=== PATIENT | male | born 1955 | race Caucasian/White ===

== ENCOUNTER → 2018-08-01 | Outpatient (CLI) | payer BC ==
[2018-08-01 10:17] LABS: Blood Urea Nitrogen 22 mg/dL (9-20)
--- NOTE | 2018-08-01 15:54 | MR ---
EXAMINATION TYPE: MR lumbar spine wo/w con DATE OF EXAM: 08/01/2018 COMPARISON: None HISTORY: LBP, weakness, BLE radic x 8 weeks, prior surgery 2014 TECHNIQUE: Multiplanar, multisequence images of the lumbar spine were acquired utilizing 10 mL intravenous Gadav ist gadolinium contrast. Fairly normal alignment. There is a few millimeter anterior subluxation of L4 in relation L5. There i s posterior rods and screws fusing L4 and L5 vertebra. There is some metal artifact. There is disc pr osthesis at L4-5. There is hypertrophic facet arthropathy and relative spinal stenosis at L3-4. The l umbar nerve roots appear normal. There is no lumbar paraspinal mass. There is no compression fracture . Contrast images show no pathologic enhancement. There is no evidence of focal bone destruction. The re is anterior disc bulging at L2-3. IMPRESSION: Postsurgical changes. Degenerative minimal L4-5 spondylolisthesis. There is mild spinal stenosis at L 3-4 due to facet arthropathy.
== END | disposition home or self-care (01) ==
LOC: RADMRIMAIN 09:41
PROVIDERS: ATTEND Psychiatry & Neurology Neurology
DX: M48.061 Spinal stenosis, lumbar region without neurogenic claudication (principal); M43.16 Spondylolisthesis, lumbar region; M46.96 Unspecified inflammatory spondylopathy, lumbar region; Z98.1 Arthrodesis status
CPT/HCPCS: 82565; 84520; 72158; A9585

== ENCOUNTER 2021-03-03 10:07 | Inpatient (IN) | payer BC ==
[2021-03-03] MEDS ORDERED: NICOTINE 21MG/24HR PATCH TRANSDERM STA (10:44)
[2021-03-03] MEDS ORDERED: MULTIVITAMINS, THERA 1 EACH TAB PO STA (10:45)
[2021-03-03] MEDS ORDERED: FOLIC ACID 1 MG TAB PO STA (10:46)
[2021-03-03] MEDS ORDERED: THIAMINE 100 MG TAB PO STA (10:46)
[2021-03-03] MEDS ORDERED: SODIUM CHLORIDE 0.9% 1,000 ML IV STA ×2 (10:47)
[2021-03-03] MEDS ORDERED: LORazepam 2 MG/ML INJ IV STA (10:48)
[2021-03-03] MEDS ORDERED: cloNIDine HCL 0.1 MG TAB PO STA (10:48)
--- NOTE | 2021-03-03 10:54 | ED ---
Alcohol HPI - General Chief Complaint: Alcohol Stated Complaint: withdrawl Time Seen by Provider: 03/03/21 10:07 Source: patient, EMS, RN notes reviewed Mode of arrival: EMS Limitations: no limitations - History of Present Illness Initial Comments: This is a 65-year-old male with a history of hypertension also a history of alcohol use who presents by EMS today with complaints of alcohol withdrawal. Even drinking as much is a fifth of alcohol per day for last couple years. He does have no history of pancreatitis or liver issues or gastritis he is aware of present in the stop drinking he quit 2 days ago he started having sweats and some shakes he knows his blood pressure is been elevated he has had decreased oral intake over last week or so with minimal food or fluid over last day or 2. No overt palpitations he is somewhat lightheaded. Some nausea at this time no diarrhea no overt abdominal pain he has had a cough he is a smoker no phlegm production. No other current complaints or modifying factors other than he is showing depressed and does also request a evaluation for this. MD Complaint: alcohol withdrawal, alcohol dependence, desires rehab - Related Data Home Medications Medication Instructions Recorded Confirmed Aspirin 325 mg PO DAILY 04/29/14 04/29/14 Losartan [Cozaar] 50 mg PO DAILY 04/29/14 04/29/14 Naproxen [Naprosyn] 250 mg PO Q6HR PRN 04/29/14 04/29/14 Omeprazole 40 mg PO DAILY 04/29/14 04/29/14 Previous Rx's Medication Instructions Recorded Atorvastatin [Lipitor] 20 mg PO DAILY #90 tab 04/30/14 Allergies Allergy/AdvReac Type Severity Reaction Status Date / Time sulfamethoxazole Allergy Rash/Hives Verified 03/03/21 10:15 [From Bactrim] trimethoprim [From Bactrim] Allergy Rash/Hives Verified 03/03/21 10:15 Review of Systems ROS Statement: Those systems with pertinent positive or pertinent negative responses have been documented in the HPI. ROS Other: All systems not noted in ROS Statement are negative. Past Medical History Past Medical History: Chest Pain / Angina, GERD/Reflux, Hypertension, Osteoarthritis (OA) History of Any Multi-Drug Resistant Organisms: None Reported Past Surgical History: Back Surgery Additional Past Surgical History / Comment(s): tooth abscess, cataract surg Past Anesthesia/Blood Transfusion Reactions: No Reported Reaction Past Psychological History: Depression Smoking Status: Current every day smoker Past Alcohol Use History: Abuse, Daily, Heavy Past Drug Use History: None Reported General Exam - General Exam Comments Initial Comments: Is a well-developed well-nourished awake alert oriented times 3 male he does appear tired Limitations: no limitations General appearance: alert, anxious Head exam: Present: atraumatic, normocephalic, normal inspection Eye exam: Present: normal appearance, PERRL, EOMI. Absent: scleral icterus, conjunctival injection, periorbital swelling ENT exam: Present: mucous membranes dry Neck exam: Present: normal inspection, full ROM, other (No stridor JVD or bruits). Absent: tenderness, meningismus, lymphadenopathy Respiratory exam: Present: normal lung sounds bilaterally. Absent: respiratory distress, wheezes, rales, rhonchi, stridor Cardiovascular Exam: Present: regular rate, normal rhythm, normal heart sounds. Absent: systolic murmur, diastolic murmur, rubs, gallop, clicks GI/Abdominal exam: Present: soft, normal bowel sounds. Absent: distended, tenderness, guarding, rebound, rigid, bruit, pulsatile mass Extremities exam: Present: normal inspection, full ROM, normal capillary refill. Absent: tenderness, pedal edema, joint swelling, calf tenderness Back exam: Present: normal inspection Neurological exam: Present: alert, oriented X3, CN II-XII intact Psychiatric exam: Present: normal affect, normal mood Skin exam: Present: warm, dry, intact, normal color. Absent: rash Course Vital Signs 03/03/21 03/03/21 03/03/21 10:09 12:05 12:52 Temperature 97.9 F Pulse Rate 92 72 69 Respiratory 20 16 16 Rate Blood Pressure 185/117 169/109 170/107 O2 Sat by Pulse 97 97 98 Oximetry Medical Decision Making - Medical Decision Making Patient is feeling somewhat improved after IV fluids in the treatment rendered thus far I did discuss case with him and with Dr. Quesada the patient be admitted for evaluation and treatment of alcohol withdrawal. Additionally he will be seen by the EPS service. - Lab Data Result diagrams: 03/03/21 10:58 03/03/21 10:58 Lab Results 03/03/21 03/03/21 03/03/21 Range/Units 10:58 10:58 10:58 WBC 6.1 (3.8-10.6) k/uL RBC 4.57 (4.30-5.90) m/uL Hgb 17.0 (13.0-17.5) gm/dL Hct 49.1 (39.0-53.0) % MCV 107.3 H (80.0-100.0) fL MCH 37.1 H (25.0-35.0) pg MCHC 34.6 (31.0-37.0) g/dL RDW 12.1 (11.5-15.5) % Plt Count 147 L (150-450) k/uL MPV 7.9 Neutrophils % 74 % Lymphocytes % 13 % Monocytes % 10 % Eosinophils % 1 % Basophils % 1 % Neutrophils # 4.6 (1.3-7.7) k/uL Lymphocytes # 0.8 L (1.0-4.8) k/uL Monocytes # 0.6 (0-1.0) k/uL Eosinophils # 0.0 (0-0.7) k/uL Basophils # 0.0 (0-0.2) k/uL Macrocytosis Moderate Sodium 141 (137-145) mmol/L Potassium 3.5 (3.5-5.1) mmol/L Chloride 104 (98-107) mmol/L Carbon Dioxide 28 (22-30) mmol/L Anion Gap 9 mmol/L BUN 10 (9-20) mg/dL Creatinine 0.57 L (0.66-1.25) mg/dL Est GFR (CKD-EPI)AfAm >90 (>60 ml/min/1.73 sqM) Est GFR (CKD-EPI)NonAf >90 (>60 ml/min/1.73 sqM) Glucose 159 H (74-99) mg/dL Calcium 9.6 (8.4-10.2) mg/dL Magnesium 1.5 L (1.6-2.3) mg/dL Total Bilirubin 1.1 (0.2-1.3) mg/dL AST 95 H (17-59) U/L ALT 55 H (4-49) U/L Alkaline Phosphatase 118 (38-126) U/L Creatine Kinase 317 H (55-170) U/L Troponin I (0.000-0.034) ng/mL Total Protein 7.2 (6.3-8.2) g/dL Albumin 4.1 (3.5-5.0) g/dL Amylase 40 (30-110) U/L Lipase 194 (23-300) U/L Urine Color Yellow Urine Appearance Clear (Clear) Urine pH 7.5 (5.0-8.0) Ur Specific [place] 1.012 (1.001-1.035) Urine Protein Trace H (Negative) Urine Glucose (UA) Negative (Negative) Urine Ketones Negative (Negative) Urine Blood Negative (Negative) Urine Nitrite Negative (Negative) Urine Bilirubin Negative (Negative) Urine Urobilinogen 2.0 (<2.0) mg/dL Ur Leukocyte Esterase Negative (Negative) Urine Opiates Screen Detected H (NotDetected) Ur Oxycodone Screen Not Detected (NotDetected) Urine Methadone Screen Not Detected (NotDetected) Ur Propoxyphene Screen Not Detected (NotDetected) Ur Barbiturates Screen Not Detected (NotDetected) U Tricyclic Antidepress Not Detected (NotDetected) Ur Phencyclidine Scrn Not Detected (NotDetected) Ur Amphetamines Screen Not Detected (NotDetected) U Methamphetamines Scrn Not Detected (NotDetected) U Benzodiazepines Scrn Not Detected (NotDetected) Urine Cocaine Screen Not Detected (NotDetected) U Marijuana (THC) Screen Not Detected (NotDetected) Serum Alcohol <10 mg/dL 03/03/21 Range/Units 10:58 WBC (3.8-10.6) k/uL RBC (4.30-5.90) m/uL Hgb (13.0-17.5) gm/dL Hct (39.0-53.0) % MCV (80.0-100.0) fL MCH (25.0-35.0) pg MCHC (31.0-37.0) g/dL RDW (11.5-15.5) % Plt Count (150-450) k/uL MPV Neutrophils % % Lymphocytes % % Monocytes % % Eosinophils % % Basophils % % Neutrophils # (1.3-7.7) k/uL Lymphocytes # (1.0-4.8) k/uL Monocytes # (0-1.0) k/uL Eosinophils # (0-0.7) k/uL Basophils # (0-0.2) k/uL Macrocytosis Sodium (137-145) mmol/L Potassium (3.5-5.1) mmol/L Chloride (98-107) mmol/L Carbon Dioxide (22-30) mmol/L Anion Gap mmol/L BUN (9-20) mg/dL Creatinine (0.66-1.25) mg/dL Est GFR (CKD-EPI)AfAm (>60 ml/min/1.73 sqM) Est GFR (CKD-EPI)NonAf (>60 ml/min/1.73 sqM) Glucose (74-99) mg/dL Calcium (8.4-10.2) mg/dL Magnesium (1.6-2.3) mg/dL Total Bilirubin (0.2-1.3) mg/dL AST (17-59) U/L ALT (4-49) U/L Alkaline Phosphatase (38-126) U/L Creatine Kinase (55-170) U/L Troponin I <0.012 (0.000-0.034) ng/mL Total Protein (6.3-8.2) g/dL Albumin (3.5-5.0) g/dL Amylase (30-110) U/L Lipase (23-300) U/L Urine Color Urine Appearance (Clear) Urine pH (5.0-8.0) Ur Specific [place] (1.001-1.035) Urine Protein (Negative) Urine Glucose (UA) (Negative) Urine Ketones (Negative) Urine Blood (Negative) Urine Nitrite (Negative) Urine Bilirubin (Negative) Urine Urobilinogen (<2.0) mg/dL Ur Leukocyte Esterase (Negative) Urine Opiates Screen (NotDetected) Ur Oxycodone Screen (NotDetected) Urine Methadone Screen (NotDetected) Ur Propoxyphene Screen (NotDetected) Ur Barbiturates Screen (NotDetected) U Tricyclic Antidepress (NotDetected) Ur Phencyclidine Scrn (NotDetected) Ur Amphetamines Screen (NotDetected) U Methamphetamines Scrn (NotDetected) U Benzodiazepines Scrn (NotDetected) Urine Cocaine Screen (NotDetected) U Marijuana (THC) Screen (NotDetected) Serum Alcohol mg/dL - EKG Data -: EKG Interpreted by Me EKG shows normal: sinus rhythm EKG Comments: Sinus rhythm 6-1. Interval 142 QRS 90 QT since QTC 444/446 marked sinus arrhythmia noted - Radiology Data Radiology results: report reviewed (Imaging reviewed no acute findings.), image reviewed Disposition Clinical Impression: Alcohol withdrawal syndrome, Dehydration, Depression Disposition: ADMITTED IP TO THIS HOSP Condition: Stable Referrals: Terence Rice MD [Primary Care Provider] - 1-2 days
--- NOTE | 2021-03-03 11:00 | XR ---
EXAMINATION TYPE: XR chest 2V DATE OF EXAM: 03/03/2021 COMPARISON: None HISTORY: Cough TECHNIQUE: Frontal and lateral views of the chest are obtained. FINDINGS: There is no focal air space opacity, pleural effusion, or pneumothorax seen. The cardiac silhouette size is within normal limits. The osseous structures are intact. IMPRESSION: No acute cardiopulmonary process.
[2021-03-03 11:30] LABS: Basophils % (A) 1 %; Eosinophils % (A) 1 %; HCT 49.1 % (39.0-53.0); Lymphocytes # (A) 0.8 k/uL (1.0-4.8); Lymphocytes % (A) 13 %; MCH 37.1 pg (25.0-35.0); MCHC 34.6 g/dL (31.0-37.0); MCV 107.3 fL (80.0-100.0); Macrocytosis Moderate; Mean Platelet Volume 7.9; Monocytes # (A) 0.6 k/uL (0-1.0); Monocytes % (A) 10 %; Neutrophils # (A) 4.6 k/uL (1.3-7.7); Neutrophils % (A) 74 %; Platelet Count 147 k/uL (150-450); RBC 4.57 m/uL (4.30-5.90); RDW 12.1 % (11.5-15.5); WBC 6.1 k/uL (3.8-10.6)
[2021-03-03 11:33] LABS: Appearance,Urine Clear (Clear); Bilirubin,Urine Negative (Negative); Blood,Urine Negative (Negative); Color,Urine Yellow; Glucose,Urine (UA) Negative (Negative); Ketones,Urine Negative (Negative); Leukocyte Esterase,Urine Negative (Negative); Nitrite,Urine Negative (Negative); PH, Urine 7.5 (5.0-8.0); Protein,Urine Trace (Negative); Specific Gravity,Urine 1.012 (1.001-1.035)
[2021-03-03 11:39] LABS: ALT 55 U/L (4-49); AST 95 U/L (17-59); African American GFR (CKD) >90 (>60 ml/min/1.73 sqM); Albumin 4.1 g/dL (3.5-5.0); Alcohol <10 mg/dL; Alkaline Phosphatase 118 U/L (38-126); Amylase 40 U/L (30-110); Anion Gap 9 mmol/L; Blood Urea Nitrogen 10 mg/dL (9-20); Calcium 9.6 mg/dL (8.4-10.2); Carbon Dioxide 28 mmol/L (22-30); Chloride 104 mmol/L (98-107); Creatine Kinase 317 U/L (55-170); Glucose 159 mg/dL (74-99); Lipase 194 U/L (23-300); Magnesium 1.5 mg/dL (1.6-2.3); Non-African American GFR(CKD) >90 (>60 ml/min/1.73 sqM); Potassium 3.5 mmol/L (3.5-5.1); Sodium 141 mmol/L (137-145); Total Bilirubin 1.1 mg/dL (0.2-1.3); Total Protein 7.2 g/dL (6.3-8.2)
[2021-03-03 11:58] LABS: Amphetamine Screen,Urine Not Detected (NotDetected); Barbiturate Screen,Urine Not Detected (NotDetected); Benzodiazepines Screen,Urine Not Detected (NotDetected); Cocaine Screen,Urine Not Detected (NotDetected); Methadone Screen, Urine Not Detected (NotDetected); Opiate Screen,Urine Detected (NotDetected); Oxycodone Screen, Urine Not Detected (NotDetected); Phencyclidine Screen,Urine Not Detected (NotDetected); Tricyclic Antidepressant,Urine Not Detected (NotDetected); Urn Cannabinoid Scrn Not Detected (NotDetected)
[2021-03-03] MEDS ORDERED: NALOXONE 0.4 MG/ML 1 ML VIAL IV PRN (13:26)
[2021-03-03] MEDS ORDERED: NAPROXEN 250 MG TAB PO PRN (13:28)
[2021-03-03] MEDS ORDERED: THIAMINE 100 MG/ML 2 ML VIAL IM STA (13:28)
[2021-03-03] MEDS ORDERED: LORazepam 2 MG/ML INJ IV PRN (13:28)
[2021-03-03] MEDS: LORazepam 2 MG/ML INJ IV PRN ×3 (14:04→22:18)
[2021-03-03] MEDS ORDERED: 1: MVI, ADULT NO.4 WITH VIT K 10 ML, THIAMINE 100 MG, FOLIC ACID 1 MG in SODIUM CHLORIDE IV SCH ×4 (16:00)
[2021-03-03] MEDS ORDERED: SODIUM CHLORIDE 0.9% 1,000 ML IV SCH (16:45)
[2021-03-03] MEDS ORDERED: THIAMINE 100 MG TAB PO SCH ×2 (17:30→21:00)
--- NOTE | 2021-03-03 17:37 | P.HPIM ---
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 Gonzalez however he now will be following Dr. Rice based on his insurance. Patient has had hypertension, mild disease involving coronary ather osclerosis, GERD, hypertension and hyperlipidemia, for which he has been off his medication for several months now for losartan. Patient's blood pressure was 05/23/2004 at home, and subsequently was discontinuing this. Patient also has depression, for which she was on Cymbalta, and has been off these successfully over the past 6 months. Patient has come into decision to quit alcohol, for which she drinks approximately 1/5 of vodka daily either wine or gin and vodka, and has decided to quit this. Last alcohol intake was 2 days ago, March 01. Last night patient has gone into significant tremors, and has decided to come in the emergency room for treatment. Patient denies any falls, no homicidal tendencies.no [place] suicidal ideation, no GI bleed, no urinary difficulties, no hallucinations, this will or auditory, no chest pain no palpitations. Patient was admitted emergency room, with consultations to psychiatry, for depression and alcohol withdrawal. Patient was receiving folic acid and thiamine orally, as well as IV infusion is not available for this. CIWA protocol using Ativan was initiated Review of Systems Constitutional: Reports as per HPI, Denies anorexia, Denies chills, Denies chronic headaches, Denies chronic pain, Denies daytime sleepiness, Denies fatigue, Denies fever, Denies lethargy, Denies malaise, Denies night sweats, Denies poor appetite, Denies sweats, Denies weakness, Denies weight gain, Denies weight loss Ears, nose, mouth and throat: Reports as per HPI, Denies ant. neck pain, Denies bleeding gums, Denies dental pain, Denies dysphagia, Denies epistaxis, Denies headache, Denies hoarseness, Denies mouth pain, Denies nasal congestion, Denies nasal discharge, Denies neck fullness/pressure, Denies neck lump, Denies nose pain, Denies odynophagia, Denies post-nasal drip, Denies sinus pain, Denies sinus pressure, Denies swelling in mouth, Denies swelling in throat, Denies sore throat, Denies vertigo, Denies voice changes Cardiovascular: Reports as per HPI, Reports high blood pressure, Denies chest pain, Denies claudication, Denies dyspnea on exertion, Denies edema, Denies orthopnea, Denies palpitations, Denies rapid heart beat, Denies shortness of breath, Denies syncope Respiratory: Reports as per HPI, Denies congestion, Denies cough, Denies cough with sputum, Denies excessive sputum, Denies home oxygen, Denies pain on inspira tion, Denies snoring Gastrointestinal: Reports as per HPI, Denies abdominal pain, Denies BRBPR, Denies change in bowel habits, Denies heartburn, Denies hematemesis, Denies jau ndice, Denies loss of appetite, Denies melena Genitourinary: Reports as per HPI, Denies urinary retention Musculoskeletal: Reports as per HPI, Denies arm numbness/tingling, Denies atrophy, Denies fractures, Denies frequent falls, Denies gait dysfunction, Denies hot joints, Denies leg numbness/tingling, Denies limitation of motion, Denies loss of height, Denies low back pain, Denies morning stiffness, Denies muscle cramps, Denies muscle weakness, Denies myalgias, Denies neck pain, Denies neck stiffness, Denies prior amputations, Denies redness of joints, Denies shooting arm pain, Denies shooting leg pain Integumentary: Reports as per HPI Neurological: Reports as per HPI, Denies aphasia, Denies ataxia, Denies balance difficulties, Denies burning pain, Denies change in mentation, Denies change in smell/taste, Denies change in speech, Denies confusion, Denies convulsions, Denies double vision, Denies gait dysfunction, Denies head injury, Denies headaches, Denies hearing difficulties, Denies lack of coordination, Denies loss of vision, Denies memory loss, Denies migraines, Denies motor disturbance, Denies numbness, Denies paralysis, Denies paresthesias, Denies seizures, Denies sensory deficit, Denies spasticity, Denies syncope, Denies tic, Denies tingling, Denies transient paralysis, Denies tremors, Denies vertigo, Denies weakness, Denies visual changes Psychiatric: Reports as per HPI Endocrine: Reports as per HPI Hematologic/Lymphatic: Denies easy bleeding Allergic/Immunologic: Reports as per HPI Past Medical History Past Medical History: Chest Pain / Angina, GERD/Reflux, Hypertension, Osteoarthritis (OA) History of Any Multi-Drug Resistant Organisms: None Reported Past Surgical History: Back Surgery Additional Past Surgical History / Comment(s): tooth abscess, cataract surg Past Anesthesia/Blood Transfusion Reactions: No Reported Reaction Additional Psychological History / Comment(s): One pack per day Smoking Status: Current every day smoker Medications and Allergies Home Medications and Allergies Comment(s): Laboratory Results WBC 6.1 k/uL (3.8-10.6) 03/03/21 10:58 RBC 4.57 m/uL (4.30-5.90) 03/03/21 10:58 Hgb 17.0 gm/dL (13.0-17.5) 03/03/21 10:58 Hct 49.1 % (39.0-53.0) 03/03/21 10:58 MCV 107.3 fL (80.0-100.0) H 03/03/21 10:58 MCH 37.1 pg (25.0-35.0) H 03/03/21 10:58 MCHC 34.6 g/dL (31.0-37.0) 03/03/21 10:58 RDW 12.1 % (11.5-15.5) 03/03/21 10:58 Plt Count 147 k/uL (150-450) L 03/03/21 10:58 MPV 7.9 03/03/21 10:58 Neutrophils % 74 % 03/03/21 10:58 Lymphocytes % 13 % 03/03/21 10:58 Monocytes % 10 % 03/03/21 10:58 Eosinophils % 1 % 03/03/21 10:58 Basophils % 1 % 03/03/21 10:58 Neutrophils # 4.6 k/uL (1.3-7.7) 03/03/21 10:58 Lymphocytes # 0.8 k/uL (1.0-4.8) L 03/03/21 10:58 Monocytes # 0.6 k/uL (0-1.0) 03/03/21 10:58 Eosinophils # 0.0 k/uL (0-0.7) 03/03/21 10:58 Basophils # 0.0 k/uL (0-0.2) 03/03/21 10:58 Macrocytosis Moderate 03/03/21 10:58 Sodium 141 mmol/L (137-145) 03/03/21 10:58 Potassium 3.5 mmol/L (3.5-5.1) 03/03/21 10:58 Chloride 104 mmol/L (98-107) 03/03/21 10:58 Carbon Dioxide 28 mmol/L (22-30) 03/03/21 10:58 Anion Gap 9 mmol/L 03/03/21 10:58 BUN 10 mg/dL (9-20) 03/03/21 10:58 Creatinine 0.57 mg/dL (0.66-1.25) L 03/03/21 10:58 Est GFR (CKD-EPI)AfAm >90 (>60 ml/min/1.73 sqM) 03/03/21 10:58 Est GFR (CKD-EPI)NonAf >90 (>60 ml/min/1.73 sqM) 03/03/21 10:58 Glucose 159 mg/dL (74-99) H 03/03/21 10:58 Calcium 9.6 mg/dL (8.4-10.2) 03/03/21 10:58 Magnesium 1.5 mg/dL (1.6-2.3) L 03/03/21 10:58 Total Bilirubin 1.1 mg/dL (0.2-1.3) 03/03/21 10:58 AST 95 U/L (17-59) H 03/03/21 10:58 ALT 55 U/L (4-49) H 03/03/21 10:58 Alkaline Phosphatase 118 U/L (38-126) 03/03/21 10:58 Creatine Kinase 317 U/L (55-170) H 03/03/21 10:58 Troponin I <0.012 ng/mL (0.000-0.034) 03/03/21 10:58 Total Protein 7.2 g/dL (6.3-8.2) 03/03/21 10:58 Albumin 4.1 g/dL (3.5-5.0) 03/03/21 10:58 Amylase 40 U/L (30-110) 03/03/21 10:58 Lipase 194 U/L (23-300) 03/03/21 10:58 Urine Color Yellow 03/03/21 10:58 Urine Appearance Clear (Clear) 03/03/21 10:58 Urine pH 7.5 (5.0-8.0) 03/03/21 10:58 Ur Specific [place] 1.012 (1.001-1.035) 03/03/21 10:58 Urine Protein Trace (Negative) H 03/03/21 10:58 Urine Glucose (UA) Negative (Negative) 03/03/21 10:58 Urine Ketones Negative (Negative) 03/03/21 10:58 Urine Blood Negative (Negative) 03/03/21 10:58 Urine Nitrite Negative (Negative) 03/03/21 10:58 Urine Bilirubin Negative (Negative) 03/03/21 10:58 Urine Urobilinogen 2.0 mg/dL (<2.0) 03/03/21 10:58 Ur Leukocyte Esterase Negative (Negative) 03/03/21 10:58 Urine Opiates Screen Detected (NotDetected) H 03/03/21 10:58 Ur Oxycodone Screen Not Detected (NotDetected) 03/03/21 10:58 Urine Methadone Screen Not Detected (NotDetected) 03/03/21 10:58 Ur Propoxyphene Screen Not Detected (NotDetected) 03/03/21 10:58 Ur Barbiturates Screen Not Detected (NotDetected) 03/03/21 10:58 U Tricyclic Antidepress Not Detected (NotDetected) 03/03/21 10:58 Ur Phencyclidine Scrn Not Detected (NotDetected) 03/03/21 10:58 Ur Amphetamines Screen Not Detected (NotDetected) 03/03/21 10:58 U Methamphetamines Scrn Not Detected (NotDetected) 03/03/21 10:58 U Benzodiazepines Scrn Not Detected (NotDetected) 03/03/21 10:58 Urine Cocaine Screen Not Detected (NotDetected) 03/03/21 10:58 U Marijuana (THC) Screen Not Detected (NotDetected) 03/03/21 10:58 Serum Alcohol <10 mg/dL 03/03/21 10:58 Coronavirus (PCR) Not Detected (Not Detectd) 03/03/21 13:52 Home Medications Medication Instructions Recorded Confirmed Type No Known Home Medications 03/03/21 03/03/21 History Allergies Allergy/AdvReac Type Severity Reaction Status Date / Time sulfamethoxazole Allergy Rash/Hives Verified 03/03/21 13:31 [From Bactrim] trimethoprim [From Bactrim] Allergy Rash/Hives Verified 03/03/21 13:31 Physical Exam Vitals: Vital Signs Temp Pulse Pulse Resp BP BP BP 03/03/21 15:29 98.4 F 89 18 160/116 178/103 03/03/21 14:52 81 16 172/107 03/03/21 12:52 69 16 170/107 03/03/21 12:05 72 16 169/109 03/03/21 10:09 97.9 F 92 20 185/117 Pulse Ox 03/03/21 15:29 98 03/03/21 14:52 98 03/03/21 12:52 98 03/03/21 12:05 97 03/03/21 10:09 97 Intake and Output 03/03/21 03/03/21 03/03/21 06:59 14:59 22:59 Other: Weight 90.718 kg Results CBC & Chem 7: 03/03/21 10:58 03/03/21 10:58 Labs: Abnormal Lab Results - Last 24 Hours (Table) 03/03/21 03/03/21 03/03/21 Range/Units 10:58 10:58 10:58 MCV 107.3 H (80.0-100.0) fL MCH 37.1 H (25.0-35.0) pg Plt Count 147 L (150-450) k/uL Lymphocytes # 0.8 L (1.0-4.8) k/uL Creatinine 0.57 L (0.66-1.25) mg/dL Glucose 159 H (74-99) mg/dL Magnesium 1.5 L (1.6-2.3) mg/dL AST 95 H (17-59) U/L ALT 55 H (4-49) U/L Creatine Kinase 317 H (55-170) U/L Urine Protein Trace H (Negative) Urine Opiates Screen Detected H (NotDetected) Thrombosis Risk Factor Assmnt - DVT/VTE Prophylaxis DVT/VTE Prophylaxis: Low risk, early ambulation encouraged Assessment and Plan Plan: 1. alcohol withdrawal, with impending delirium tremens, patient is on Ativan for [place] DVT prophylaxis, patient's receiving folic acid and vitamin B1, unable to obtain chlordiazepoxide, while in the hospital. This could be transitioned for detox as an outpatient, with consultation to psychiatry for outpatient program. No evidence of [place] psychosis at this time, 2. Dysthymia, without any suicidality or homicidality, consult with psychiatry, will also need outpatient counseling 3. Lumbar disc disease, was doing well while off Cymbalta for this particular reason, has when necessary opiates as needed 4. Hypertension, with uncontrolled blood pressure this time, possibly related to impending DTs, patient will restart on losartan, 100 mg when necessary hydralazine 10 every 4 over 160. Patient will have an echocardiogram, to evaluate for cardiomyopathy as well 5. Hyperlipidemia, on Lipitor 20 mg, check for CPK, has slight elevation of SG OT SGPT, this will be monitored 5. DVT prophylaxis 6. GI prophylaxis 7. GERD, start tonics 40 mg daily 8. Mild transaminitis, secondary to alcohol against [place], check INRs monitor CMP 9. Impaired random blood sugars, check for A1c and INRs
[2021-03-03] MEDS: 1: THIAMINE 100 MG, FOLIC ACID 1 MG in SODIUM CHLORIDE 0.9% 1,000 ML 2: SODIUM CHLORIDE IV SCH (18:07)
[2021-03-03] MEDS: LOSARTAN 50 MG TAB PO SCH (18:11)
[2021-03-04] MEDS: 1: THIAMINE 100 MG, FOLIC ACID 1 MG in SODIUM CHLORIDE 0.9% 1,000 ML 2: SODIUM CHLORIDE IV SCH ×3 (03:14→23:41)
[2021-03-04] MEDS: hydrALAZINE HCL 20 MG/ML 1 ML VIAL IVP PRN ×2 (04:56→13:21)
[2021-03-04] MEDS: NICOTINE 21MG/24HR PATCH TRANSDERM SCH (08:17)
[2021-03-04] MEDS: MULTIVITAMINS, THERA 1 EACH TAB PO SCH (08:17)
[2021-03-04] MEDS: LOSARTAN 50 MG TAB PO SCH (08:17)
[2021-03-04] MEDS: ATORVASTATIN 20 MG TAB PO SCH (08:17)
[2021-03-04] MEDS: PANTOPRAZOLE 40 MG TABLET PO SCH (08:17)
[2021-03-04] MEDS: LORazepam 2 MG/ML INJ IV PRN ×4 (08:49→20:00)
[2021-03-04] MEDS ORDERED: FOLIC ACID 1 MG TAB PO SCH (09:00)
[2021-03-04 10:23] LABS: INR 0.97 (0.90-1.11); Prothrombin Time 10.6 sec (9.9-11.9)
[2021-03-04 10:50] LABS: African American GFR (CKD) 115.9 (60.0-200.0); Albumin 3.6 g/dL (3.8-4.9); Albumin/Globulin Ratio 1.53 (1.60-3.17); Anion Gap 12.4 mmol/L (4.00-12.00); BUN/Creat Ratio 9.22 Ratio (12.00-20.00); Blood Urea Nitrogen 6.5 mg/dL (9.0-27.0); Calcium 8.9 mg/dL (8.7-10.3); Carbon Dioxide 26.8 mmol/L (21.6-31.8); Globulin 2.4 g/dL (1.6-3.3); Potassium 3.4 mmol/L (3.5-5.5); Total Bilirubin 0.9 mg/dL (0.30-1.20)
[2021-03-04] MEDS ORDERED: POTASSIUM CHLORIDE ER 20 MEQ TAB.ER PO STA (12:12)
--- NOTE | 2021-03-04 12:16 | P.PN ---
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 Gonzalez however he now will be following Dr. Rice based on his insurance. Patient has had hypertension, mild disease involving coronary atherosclerosis, GERD, hypertension and hyperlipidemia, for which he has been off his medication for several months now for losartan. Patient's blood pressure was 05/23/2004 at home, and subsequently was discontinuing this. Patient also has depression, for which she was on Cymbalta, and has been off these successfully over the past 6 months. Patient has come into decision to quit alcohol, for which she drinks approximately 1/5 of vodka daily either wine or gin and vodka, and has decided to quit this. Last alcohol intake was 2 days ago, March 01. Last night patient has gone into significant tremors, and has decided to come in the emergency room for treatment. Patient denies any falls, no homicidal tendencies.no [place] suicidal ideation, no GI bleed, no urinary difficulties, no hallucinations, this will or auditory, no chest pain no palpitations. Patient was admitted emergency room, with consultations to psychiatry, for depression and alcohol withdrawal. Patient was receiving folic acid and thiamine orally, as well as IV infusion is not available for this. CIWA protocol using Ativan was initiated : Patient sitting much better, required Ativan for tremors this morning, has insomnia, with broken sleep, and melatonin started, also has restless leg. Patient will be started ropinirole, and iron studies to be done, lipid panel to be done, CPKs improving, transaminitis is improving, A1c is pending, fasting blood sugars 95 blood pressure still elevated systolic 160 , no fever no a spiration no falls no diarrhea, Review of Systems Constitutional: Reports as per HPI, Denies anorexia, Denies chills, Denies chronic headaches, Denies chronic pain, Denies daytime sleepiness, Denies fatigue, Denies fever, Denies lethargy, Denies malaise, Denies night sweats, Denies poor appetite, Denies sweats, Denies weakness, Denies weight gain, Denies weight loss Ears, nose, mouth and throat: Reports as per HPI, Denies ant. neck pain, Denies bleeding gums, Denies dental pain, Denies dysphagia, Denies epistaxis, Denies headache, Denies hoarseness, Denies mouth pain, Denies nasal congestion, Denies nasal discharge, Denies neck fullness/pressure, Denies neck lump, Denies nose pain, Denies odynophagia, Denies post-nasal drip, Denies sinus pain, Denies sinus pressure, Denies swelling in mouth, Denies swelling in throat, Denies sore throat, Denies vertigo, Denies voice changes Cardiovascular: Reports as per HPI, Reports high blood pressure, Denies chest pain, Denies claudication, Denies dyspnea on exertion, Denies edema, Denies orthopnea, Denies palpitations, Denies rapid heart beat, Denies shortness of breath, Denies syncope Respiratory: Reports as per HPI, Denies congestion, Denies cough, Denies cough with sputum, Denies excessive sputum, Denies home oxygen, Denies pain on inspiration, Denies snoring Gastrointestinal: Reports as per HPI, Denies abdominal pain, Denies BRBPR, Denies change in bowel habits, Denies heartburn, Denies hematemesis, Denies jaundice, Denies loss of appetite, Denies melena Genitourinary: Reports as per HPI, Denies urinary retention Musculoskeletal: Reports as per HPI, Denies arm numbness/tingling, Denies atrophy, Denies fractures, Denies frequent falls, Denies gait dysfunction, Denies hot joints, Denies leg numbness/tingling, Denies limitation of motion, Denies loss of height, Denies low back pain, Denies morning stiffness, Denies muscle cramps, Denies muscle weakness, Denies myalgias, Denies neck pain, Denies neck stiffness, Denies prior amputations, Denies redness of joints, Denies shooting arm pain, Denies shooting leg pain Integumentary: Reports as per HPI Neurological: Reports as per HPI, Denies aphasia, Denies ataxia, Denies balance difficulties, Denies burning pain, Denies change in mentation, Denies change in smell/taste, Denies change in speech, Denies confusion, Denies convulsions, De nies double vision, Denies gait dysfunction, Denies head injury, Denies headaches, Denies hearing difficulties, Denies lack of coordination, Denies loss of vision, Denies memory loss, Denies migraines, Denies motor disturbance, Denies numbness, Denies paralysis, Denies paresthesias, Denies seizures, Denies sensory deficit, Denies spasticity, Denies syncope, Denies tic, Denies tingling, Denies transient paralysis, Denies tremors, Denies vertigo, Denies weakness, Denies visual changes Psychiatric: Reports as per HPI Endocrine: Reports as per HPI Hematologic/Lymphatic: Denies easy bleeding Allergic/Immunologic: Reports as per HPI Objective - Vital Signs Vital signs: Vital Signs Temp 98.2 F 03/04/21 04:50 Pulse 69 03/04/21 04:50 Resp 20 03/04/21 04:50 BP 165/94 03/04/21 04:50 Pulse Ox 98 03/04/21 04:50 Intake & Output 03/03/21 03/04/21 03/04/21 18:59 06:59 18:59 Intake Total 240 340 Balance 240 340 Weight 90.718 kg Intake: Oral 240 340 Other: # Voids 2 1 - Constitutional General appearance: Present: cooperative, morbidly obese - EENT Eyes: Present: EOMI, PERRLA, dentition normal, normal appearance - Neck Neck: Present: normal ROM Thyroid: negative: enlarged - Respiratory Respiratory: bilateral: CTA, negative: diminished, dullness - Cardiovascular Rhythm: regular Heart sounds: normal: S1, S2 - Gastrointestinal General gastrointestinal: Present: normal bowel sounds - Integumentary Integumentary: Present: decreased turgor, normal - Neurologic Neurologic: Present: CNII-XII intact, focal deficits - Musculoskeletal Musculoskeletal: Present: gait normal - Labs CBC & Chem 7: 03/03/21 10:58 03/04/21 04:14 Labs: Abnormal Lab Results - Last 24 Hours (Table) 03/03/21 03/04/21 Range/Units 10:58 04:14 Potassium 3.4 L (3.5-5.5) mmol/L Anion Gap 12.40 H (4.00-12.00) mmol/L BUN 6.5 L (9.0-27.0) mg/dL BUN/Creatinine Ratio 9.22 L (12.00-20.00) Ratio AST 52 H (14-35) U/L Total Protein 6.0 L (6.2-8.2) g/dL Albumin 3.6 L (3.8-4.9) g/dL Albumin/Globulin Ratio 1.53 L (1.60-3.17) g/dL Urine Opiates Screen Detected H (NotDetected) Assessment and Plan Plan: 1. alcohol withdrawal, with impending delirium tremens, patient is on Ativan for Ciwa DVT prophylaxis, patient's receiving folic acid and vitamin B1, unable to obtain chlordiazepoxide, while in the hospital. This could be transitioned for detox as an outpatient, with consultation to psychiatry for outpatient program. No evidence of Korsakoff psychosis at this time, 2. Dysthymia, without any suicidality or homicidality, consult with psychiatry, will also need outpatient counseling 3. Lumbar disc disease, was doing well while off Cymbalta for this particular reason, has when necessary opiates as needed 4. Hypertension, with uncontrolled blood pressure this time, possibly related to impending DTs, patient will restart on losartan, 100 mg when necessary hydralazine 10 every 4 over 160. Patient will have an echocardiogram, to evaluate for cardiomyopathy as well 5. Hyperlipidemia, on Lipitor 20 mg, check for CPK, has slight elevation of SGOT SGPT, this will be monitored 5. DVT prophylaxis 6. GI prophylaxis 7. GERD, start tonics 40 mg daily 8. Mild transaminitis, secondary to alcohol against [place], check INRs monitor CMP 9. Impaired random blood sugars, check for A1c and INRs 10 Hypomagnesemia replacement ongoing 11. elevated red blood cell volume, megalocytosis, check for B12, continue on folic acid
[2021-03-04] MEDS: ASPIRIN 325 MG TAB PO SCH (12:52)
[2021-03-04] MEDS: SODIUM CHLORIDE 0.9% 1,000 ML IV SCH (12:58)
[2021-03-04] MEDS: MAGNESIUM OXIDE 400 MG TAB PO SCH ×2 (13:00→20:00)
--- NOTE | 2021-03-04 13:52 | P.CN ---
Psychiatric Consult - . 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 REASON FOR REFERRAL: Psychiatry was consulted for "depression and alcohol withdrawal" HISTORY OF PRESENT ILLNESS: The patient presented to the hospital yesterday by EMS for alcohol withdrawal symptoms. Apparently patient mentioned that he drinks a fifth of alcohol a day. He apparently has been doing this for the past couple of years. Patient desired to go to rehab. He was also endorsing depression and requested a psychiatric evaluation. Patient's UDS is positive for opiates. His MCV was 107 on admission. Patient's last 3 ciwas was were 6,4 and 5 respectively and has been given Ativan. Patient was seen lying in his bed and his at his side. Patient's was agreeable to speak to junior technical writer in the hallway. She states that patient has been feeling more depressed lately and has been increasing in his alcohol use. She states that even having poor sleep. She claims that this has been going on for the past 5 years. She states that he has [facility] in the past. Patient was seen and agreeable to speak to junior technical writer. He claims that he is having mild withdrawal symptoms at this time. He spoke about the past 5 years and his drinking alcohol. He states that it has escalated. He states that he retired in 2019 and since then has been feeling fairly anxious. He claims that for the anxiety and anhedonia he has been using alcohol as a coping mechanism. He states that he also has had back pain and had a surgery and still feels weakness in his legs. He states that he stopped drinking approximately 6 months ago claims that 2 weeks later he relapsed back on alcohol. He states that his last drink was on before coming into the hospital on Friday. He states that he was trying to manage his withdrawal symptoms at home however came into the hospital. He states that his appetite and his sleep has been poor. He describes his mood as "down". At this time patient denies any suicidal or homical ideations, intent or plan. Patient denies any auditory, visual hallucinations and denies any paranoia or delusions. Patients admits to using alcohol as described above and cigarettes. PAST PSYCHIATRIC HISTORY: Patient has a a history of alcohol use disorder and anxiety and depression. He states that he has been on Cymbalta in the past and also Zoloft. Patient denies any previous psychiatric hospitalizations. Patient denies any psychiatric outpatient follow-up. Patient denies any history of suicide attempts in the past. He claims that he follows up with his PCP Dr. Quesada. Past Medical History: Chest Pain / Angina, GERD/Reflux, Hypertension, Osteoarthritis (OA) History of Any Multi-Drug Resistant Organisms: None Reported ALLERGIES: as per EMR. CHEMICAL DEPENDENCY HISTORY: as per HPI. FAMILY PSYCHIATRIC/SUBSTANCE USE HISTORY: denies SOCIAL HISTORY: Patient was born and raised in [facility] and moved around [place] during his training. He states that he is and has 3 kids. 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 He states that they live in a house. MENTAL STATUS EXAM: General Appearance: Patient appears to be tall, stated age is alert, pleasant, and cooperative. Patient appears to have fair hygiene and grooming wearing hospital gown with poor eye contact. Behavior: Patient is calmly lying in bed without any agitated behavior. Cooperative Speech: Patient's speech is fluent and nonpressured. Soft spoken Mood/Affect: Patient reports their mood is "depressed and anxious", affect is congruent and tearful at times Suicidality/Homicidality: Patient denies having any suicidal or homicidal ideation intent or plan. Perceptions: Patient denies any visual hallucinations and denies any auditory hallucinations Though content/process: There is no evidence of any delusional thought content and thought process is linear and goal-directed. Memory and concentration: AOX3, grossly intact for the purposes of this session. Can spell "WORLD" backwards Judgment and insight: Fair IMPRESSIONS: Major depressive disorder without psychotic features Generalized anxiety disorder Alcohol use disorder, severe, currently in withdrawal Nicotine dependence PLAN: -At this time patient DOES NOT meet criteria for inpatient psychiatric admission. -Would recommend the following medication changes/additions: Patient is agreeable to start Prozac 20 mg daily for mood/anxiety. Naltrexone 50 mg by mouth daily for alcohol cravings. Trazodone 50 mg daily at bedtime for insomnia/mood. -CIWA protocol with PRN Ativan for alcohol withdrawal. Continue to monitor vital signs. -sprinkler worker to provide patient with outpatient mental health/psychiatry resources for appropriate follow up upon discharge -Roving Department Supervisor spoke with patient about substance abuse and the harmful effects on medical and mental health, patient verbally understood and agreed. -sprinkler worker to provide patient substance use treatment resources including AA/NA meetings in the community. -sprinkler worker to provide patient with access line number to call for inpatient substance rehab -Communicated plan to patient's nurse -Will continue to follow along -Please contact with any questions. 03/04/21 13:46
[2021-03-04] MEDS: FLUoxetine HCL 20 MG CAP PO SCH (14:22)
[2021-03-04] MEDS: NALTREXONE HCL 50 MG TAB PO SCH (16:56)
[2021-03-04] MEDS ORDERED: traZODone HCL 50 MG TAB PO SCH (21:00)
[2021-03-05 07:42] LABS: Basophils % (A) 1 %; Eosinophils # (A) 0.1 k/uL (0-0.7); Eosinophils % (A) 2 %; HCT 45.8 % (39.0-53.0); HGB 15.4 gm/dL (13.0-17.5); Lymphocytes # (A) 1.7 k/uL (1.0-4.8); Lymphocytes % (A) 28 %; MCH 36.4 pg (25.0-35.0); MCHC 33.6 g/dL (31.0-37.0); MCV 108.3 fL (80.0-100.0); Macrocytosis Moderate; Mean Platelet Volume 8.3; Monocytes # (A) 0.5 k/uL (0-1.0); Monocytes % (A) 8 %; Neutrophils # (A) 3.4 k/uL (1.3-7.7); Neutrophils % (A) 58 %; Platelet Count 128 k/uL (150-450); RBC 4.23 m/uL (4.30-5.90); RDW 12.1 % (11.5-15.5); WBC 5.9 k/uL (3.8-10.6)
[2021-03-05] MEDS: PANTOPRAZOLE 40 MG TABLET PO SCH (07:45)
[2021-03-05] MEDS: NICOTINE 21MG/24HR PATCH TRANSDERM SCH (07:45)
[2021-03-05] MEDS: FLUoxetine HCL 20 MG CAP PO SCH (07:46)
[2021-03-05] MEDS: NALTREXONE HCL 50 MG TAB PO SCH (07:46)
[2021-03-05] MEDS: LOSARTAN 50 MG TAB PO SCH (07:46)
[2021-03-05] MEDS: MULTIVITAMINS, THERA 1 EACH TAB PO SCH (07:46)
[2021-03-05] MEDS: ATORVASTATIN 20 MG TAB PO SCH (07:46)
[2021-03-05] MEDS: ASPIRIN 325 MG TAB PO SCH (07:46)
[2021-03-05] MEDS: MAGNESIUM OXIDE 400 MG TAB PO SCH ×2 (07:46→20:03)
[2021-03-05] MEDS: hydrALAZINE HCL 20 MG/ML 1 ML VIAL IVP PRN (09:48)
[2021-03-05] MEDS ORDERED: LORazepam 1 MG TAB PO PRN ×2 (10:42→10:48)
[2021-03-05] MEDS: 1: THIAMINE 100 MG, FOLIC ACID 1 MG in SODIUM CHLORIDE 0.9% 1,000 ML 2: SODIUM CHLORIDE IV SCH (10:51)
[2021-03-05] MEDS: SODIUM CHLORIDE 0.9% 1,000 ML IV SCH (10:52)
[2021-03-05] MEDS: hydrALAZINE HCL 10 MG TAB PO PRN ×2 (11:24→16:36)
[2021-03-05 11:40] LABS: African American GFR (CKD) 109.7 (60.0-200.0); Albumin 3.6 g/dL (3.8-4.9); Albumin/Globulin Ratio 1.48 (1.60-3.17); Anion Gap 13.3 mmol/L (4.00-12.00); BUN/Creat Ratio 11.15 Ratio (12.00-20.00); Carbon Dioxide 24.3 mmol/L (21.6-31.8); Chol/HDL Ratio 1.97 Ratio; Globulin 2.4 g/dL (1.6-3.3); HDL Cholesterol 88.3 mg/dL (40.00-60.00); LDL Cholesterol,Calculated 71.2 mg/dL (0.0-131.0); Non-African American GFR(CKD) 94.6 (60.0-200.0); Potassium 3.7 mmol/L (3.5-5.5); Total Bilirubin 0.8 mg/dL (0.30-1.20); Triglycerides 72.5 mg/dL (0.00-149.00); VLDL Calculation 14.5 mg/dL (5.00-40.00)
--- NOTE | 2021-03-05 13:09 | P.PN ---
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 Rice based on his ins urance. Patient has had hypertension, mild disease involving coronary atherosclerosis, GERD, hypertension and hyperlipidemia, for which he has been off his medication for several months now for losartan. Patient's blood pressure was 05/23/2004 at home, and subsequently was discontinuing this. Linda lackey also has depression, for which she was on Cymbalta, and has been off these successfully over the past 6 months. Patient has come into decision to quit alcohol, for which she drinks approximately 1/5 of vodka daily either wine or gin and vodka, and has decided to quit this. Last alcohol intake was 2 days ago, March 01. Last night patient has gone into significant tremors, and has decided to come in the emergency room for treatment. Patient denies any falls, no homicidal tendencies.no [place] suicidal ideation, no GI bleed, no urinary difficulties, no hallucinations, this will or auditory, no chest pain no palpitations. Patient was admitted emergency room, with consultations to psych iatry, for depression and alcohol withdrawal. Patient was receiving folic acid and thiamine orally, as well as IV infusion is not available for this. CIWA protocol using Ativan was initiated 03/04: Patient sitting much better, required Ativan for tremors this morning, has insomnia, with broken sleep, and melatonin started, also has restless leg. Patient will be started ropinirole, and iron studies to be done, lipid panel to be done, CPKs improving, transaminitis is improving, A1c is pending, fasting blood sugars 95 blood pressure still elevated systolic 160 , no fever no aspiration no falls no diarrhea, 03/05: Patient has been seen by psychiatry with recommendations for Prozac 20 mg daily, Valtrex on 50 mg daily for alcohol cravings, trazodone 50 mg daily at bedtime for insomnia and mood, continue CIWA protocol. Social work to provide substance abuse and AA meeting information. Patient noted to have continued high blood pressure and IV access has been lost. Will change hydralazine to oral into be used if systolic blood pressures greater than 140. Patient has been resumed on losartan. Anticipate monitoring patient overnight and discharged home tomorrow. Patient's will be contacted by Dr. Quesada as requested. REVIEW OF SYSTEMS Constitutional: No fever, no chills, no night sweats. No weight change. No weakness, fatigue or lethargy. No daytime sleepiness. EENT: No headache. No blurred vision or double vision, no loss of vision. No loss of Hearing, no ringing in the ears, no dizziness. No nasal drainage or congestion. No epistaxis. No sore throat. Lungs: No shortness of breath, cough, no sputum production. No wheezing. Cardiovascular: No chest pain, no lower extremity edema. No palpitations. No paroxysmal nocturnal dyspnea. No orthopnea. No lightheadedness or dizziness. No syncopal episodes. Abdominal: No abdominal pain. No nausea, vomiting. No diarrhea. No constipation. No bloody or tarry stools.. No loss of appetite. Genitourinary: No dysuria, increased frequency, urgency. No urinary retention. Musculoskeletal: No myalgias. No muscle weakness, no gait dysfunction, no frequent falls. No back pain. No neck pain. Integumentary: No wounds, no lesions. No rash or pruritus. No unusual bruising. No change in hair or nails. Neurologic: No aphasia. No facial droop. No change in mentation. No head injury. No headache. No paralysis. No paresthesia. Positive tremors, improving. Psychiatric: No depression. Reports anxiety. No mood swings. Endocrine: No abnormal blood sugars. No weight change. No excessive sweating or thirst. No cold intolerance. PHYSICAL EXAMINATION Gen: This is a 65-year-old male. He is resting in bed and appears to be comfortable and in no acute distress. HEENT: Head is atraumatic, normocephalic. Pupils equal, round. Sclerae is anict renny. NECK: Supple. No JVD. No lymphadenopathy. No thyromegaly. LUNGS: Clear to auscultation. No wheezes or rhonchi. No intercostal retractions. HEART: Regular rate and rhythm. No murmur. ABDOMEN: Soft. Bowel sounds are present. No masses. No tenderness. EXTREMITIES: No pedal edema. No calf tenderness. NEUROLOGICAL: Patient is awake, alert and oriented x3. Cranial nerves 2 through 12 are grossly intact. ASSESSMENT AND PLAN 1. Alcohol withdrawal, with impending delirium tremens. Continue on Ativan CIWA, transitioned to oral due to lack of IV access, continue folic acid, vitamin B1. This could be transitioned for detox as an outpatient, consult with psychiatry appreciated. No evidence of [place]akoff psychosis at this time, 2. Dysthymia, without any suicidality or homicidality. Consult with psychiatry appreciated. Outpatient follow-up. 3. Lumbar disc disease, was doing well while off Cymbalta for this particular reason, has when necessary opiates as needed 4. Hypertension, with uncontrolled blood pressure this time, possibly related to impending DTs, patient will restart on losartan, 100 mg when necessary hydralazine 20 oral every 4 over 140. Echocardiogram report is pending 5. Hyperlipidemia, on Lipitor 20 mg, check for CPK, has slight elevation of SGOT SGPT. 6. GI prophylaxis. Protonix daily 7. Mild transaminitis, secondary to alcohol against [place], check INRs monitor CMP 8. Impaired random blood sugars, check for A1c and INRs 9. Hypomagnesemia replacement ongoing 10. Elevated red blood cell volume, megalocytosis, check for B12, continue on folic acid 11. DVT prophylaxis. 12. COVID-19 testing negative. DISCHARGE PLAN Home on Friday Impression and plan of care have been directed as dictated by the signing physician. Jeni Prasad nurse practitioner acting as scribe for signing regla seo. Objective - Vital Signs Vital signs: Vital Signs Temp 97.7 F 03/05/21 05:00 Pulse 86 03/05/21 05:00 Resp 16 03/05/21 05:00 BP 153/91 03/05/21 05:00 Pulse Ox 98 03/05/21 05:00 Intake & Output 03/04/21 03/05/21 03/05/21 18:59 06:59 18:59 Intake Total 1360 620 Balance 1360 620 Intake: Intake, IV Titration 1000 500 Amount Sodium Chloride 0.9% 1, 1000 000 ml @ 100 mls/hr IV . BY DURATION KATHY Rx#: [id number] Sodium Chloride 0.9% 1, 500 000 ml @ 50 mls/hr IV . Q20H KATHY Rx#:[id number] Oral 360 120 Other: # Voids 3 1 # Bowel Movements 1 - Labs CBC & Chem 7: 03/05/21 06:59 03/05/21 06:59 Labs: Abnormal Lab Results - Last 24 Hours (Table) 03/04/21 03/05/21 Range/Units 04:14 06:59 RBC 4.23 L (4.30-5.90) m/uL MCV 108.3 H (80.0-100.0) fL MCH 36.4 H (25.0-35.0) pg Plt Count 128 L (150-450) k/uL Potassium 3.4 L (3.5-5.5) mmol/L Anion Gap 12.40 H (4.00-12.00) mmol/L BUN 6.5 L (9.0-27.0) mg/dL BUN/Creatinine Ratio 9.22 L (12.00-20.00) Ratio AST 52 H (14-35) U/L Total Protein 6.0 L (6.2-8.2) g/dL Albumin 3.6 L (3.8-4.9) g/dL Albumin/Globulin Ratio 1.53 L (1.60-3.17) g/dL
--- NOTE | 2021-03-05 13:25 | P.PN ---
Progress Note - Text Progress Note Date: 03/05/21 Interval History: Patient was seen today for psychiatric follow-up regarding patient's depression anxiety and alcohol use. Patient claims that his alcohol withdrawal symptoms have been gradually improving and he feels "less shaky" today. He claims that he slept throughout the night fairly well however claims that he woke up today feeling "woozy" this morning. He is agreeable to have his trazodone reduced today. He asked several questions about his medications and so did his which were answered by writer technical publications. He states that his mood and anxiety are "about the same" as yesterday. He appears to be more future oriented and agreeable to go to rehab and was asking questions about the different programs and also his outpatient follow-up. At this time patient denies any suicidal or homical ideations, intent or plan. Patient denies any auditory, visual hallucinations and denies any paranoia or delusions. Patient denies any side effects from the medications and has been compliant with meds. Mental Status Exam: General Appearance: Patient appears to be tall, stated age is alert, pleasant, and cooperative. Patient appears to have fair hygiene and grooming wearing hospital gown with poor eye contact. Behavior: Patient is calmly lying in bed without any agitated behavior. Cooperat norah Speech: Patient's speech is fluent and nonpressured. Mood/Affect: Patient reports their mood is "about the same", affect is congruent and improved Suicidality/Homicidality: Patient denies having any suicidal or homicidal ideation intent or plan. Perceptions: Patient denies any visual hallucinations and denies any auditory hallucinations Though content/process: There is no evidence of any delusional thought content and thought process is linear and goal-directed. More future oriented Memory and concentration: AOX3, grossly intact for the purposes of this session. Judgment and insight: Fair, improving mildly IMPRESSIONS: Major depressive disorder without psychotic features Generalized anxiety disorder Alcohol use disorder, severe, currently in withdrawal Nicotine dependence PLAN: -At this time patient DOES NOT meet criteria for inpatient psychiatric admission. -Would recommend the following medication changes/additions: Increased Prozac 30 mg daily for mood/anxiety. Naltrexone 50 mg by mouth daily for alcohol cravings. Decreased Trazodone 25 mg daily at bedtime for insomnia/mood. -CIWA protocol with PRN Ativan for alcohol withdrawal. Continue to monitor vital signs. -ornamental ironworker to provide patient with outpatient mental health/psychiatry resources for appropriate follow up upon discharge -Grain Merchandising Manager spoke with patient about substance abuse and the harmful effects on medical and mental health, patient verbally understood and agreed. -ornamental ironworker to provide patient substance use treatment resources including AA/NA meetings in the community. -ornamental ironworker to provide patient with access line number to call for inpatient substance rehab -Communicated plan to patient's nurse -At this time psychiatry will sign off. -Please contact with any questions.
--- NOTE | 2021-03-05 17:50 | ECHOF ---
Referral Reason:[id number] MEASUREMENTS -------- HEIGHT: 180.3 cm WEIGHT: 90.7 kg BP: 153/91 IVSd: 1.3 cm (0.6 - 1.1) LVIDd: 4.1 cm (3.9 - 5.3) LVPWd: 1.5 cm (0.6 - 1.1) EDV(Teich): 74 ml IVSs: 1.9 cm LVIDs: 2.8 cm LVPWs: 1.8 cm %IVS Thck: 49 % ESV(Teich): 29 ml EF(Teich): 61 % %FS: 32 % SV(Teich): 45 ml RVIDd: 2.9 cm (< 3.3) LALs A4C: 4.7 cm LAAs A4C: 13.4 cm LAESV A-L A4C: 33 ml LAESV MOD A4C: 29 ml LALs A2C: 5.0 cm LAAs A2C: 17.2 cm LAESV A-L A2C: 50 ml LAESV MOD A2C: 47 ml LAESV(A-L): 42 ml LAESV Index (A-L): 19.91 ml/m Ao Diam: 3.2 cm (2.0 - 3.7) AV Cusp: 2.0 cm (1.5 - 2.6) MV E Hasmukh: 0.72 m/s MV DecT: 146 ms MV Dec Hall: 4.9 m/s MV A Hasmukh: 0.84 m/s MV E/A Ratio: 0.85 MV PHT: 42 ms LVOT Vmax: 1.06 m/s LVOT maxP.50 mmHg AV Vmax: 1.38 m/s AV maxP.56 mmHg TR Vmax: 2.69 m/s TR maxP.87 mmHg RAP: 5.00 mmHg RVSP: 33.87 mmHg FINDINGS -------- Sinus rhythm. This was a technically adequate study. The left ventricular size is normal. There is mild concentric left ventricular hypertrophy. Overa ll left ventricular systolic function is normal with, an EF between 55 - 60 %. The right ventricle is normal in size. Normal LA size by volume 22+/-6 ml/m2. The right atrial size is normal. Interatrial and interventricular septum intact. The aortic valve is trileaflet and appears structurally normal. There is no evidence of aortic regu rgitation. There is no evidence of aortic stenosis. No mitral regurgitation. Mild tricuspid regurgitation present. There is no evidence of pulmonary hypertension. The right v entricular systolic pressure, as measured by Doppler, is 33.87mmHg. There is no pulmonic regurgitation present. The aortic root size is normal. IVC Not well visulized. There is no pericardial effusion. CONCLUSIONS -------- 1. The left ventricular size is normal. 2. There is mild concentric left ventricular hypertrophy. 3. Overall left ventricular systolic function is normal with, an EF between 55 - 60 %. 4. Mild tricuspid regurgitation present. [employer] OPERATOR: Marcy Richter RDCS
[2021-03-05] MEDS ORDERED: traZODone HCL 50 MG TAB PO SCH (21:00)
[2021-03-06 05:10] VITALS: RESP 16; TEMP 97.9
[2021-03-06] MEDS: PANTOPRAZOLE 40 MG TABLET PO SCH (08:05)
[2021-03-06] MEDS: NICOTINE 21MG/24HR PATCH TRANSDERM SCH (08:05)
[2021-03-06] MEDS: ASPIRIN 325 MG TAB PO SCH (08:05)
[2021-03-06] MEDS: ATORVASTATIN 20 MG TAB PO SCH (08:06)
[2021-03-06] MEDS: MAGNESIUM OXIDE 400 MG TAB PO SCH (08:06)
[2021-03-06] MEDS: NALTREXONE HCL 50 MG TAB PO SCH (08:06)
[2021-03-06] MEDS: LOSARTAN 50 MG TAB PO SCH (08:06)
[2021-03-06] MEDS: MULTIVITAMINS, THERA 1 EACH TAB PO SCH (08:06)
[2021-03-06 08:11] VITALS: BP 140/80; PULSE 72
[2021-03-06] MEDS ORDERED: FLUoxetine HCL 10 MG CAP PO SCH (09:00)
--- NOTE | 2021-03-06 12:45 | P.DS ---
Providers Date of admission: 03/03/21 13:26 Expected date of discharge: 03/06/21 Attending physician: Ysabel Quesada Consults: 03/03/21 16:13 Consult Physician Stat Consulting Provider: Gilberto Moscoso Consult Reason/Comments: depression ETOH withdraw Do you want consulting provider notified?: Yes Primary care physician: Terence Rucker [facility] Course: HISTORY OF PRESENT ILLNESS This is a 65-year-old pleasant gentleman, retired radiologist, previously a patient of Dr. Gonzalez however he now will be following Dr. Rice based on his insurance. Patient has had hypertension, mild disease involving coronary atherosclerosis, GERD, hypertension and hyperlipidemia, for which he has been off his medication for several months now for losartan. Patient's blood pressure was 05/23/2004 at home, and subsequently was discontinuing this. Patient also has depression, for which she was on Cymbalta, and has been off these successfully over the past 6 months. Patient has come into decision to quit alcohol, for which she drinks approximately 1/5 of vodka daily either wine or gin and vodka, and has decided to quit this. Last alcohol intake was 2 days ago, March 01. Last night patient has gone into significant tremors, and has decided to come in the emergency room for treatment. Patient denies any falls, no homicidal tendencies.no Bruin suicidal ideation, no GI bleed, no urinary difficulties, no hallucinations, this will or auditory, no chest pain no palpitations. Patient was admitted emergency room, with consultations to psychiatry, for depression and alcohol withdrawal. Patient was receiving folic acid and thiamine orally, as well as IV infusion is not available for this. CIWA protocol using Ativan was initiated 03/04: Patient sitting much better, required Ativan for tremors this morning, has insomnia, with broken sleep, and melatonin started, also has restless leg. Patient will be started ropinirole, and iron studies to be done, lipid panel to be done, CPKs improving, transaminitis is improving, A1c is pending, fasting blood sugars 95 blood pressure still elevated systolic 160 , no fever no aspiration no falls no diarrhea, 03/05: Patient has been seen by psychiatry with recommendations for Prozac 20 mg daily, Valtrex on 50 mg daily for alcohol cravings, trazodone 50 mg daily at bedtime for insomnia and mood, continue CIWA protocol. Social work to provide substance abuse and AA meeting information. Patient noted to have continued high blood pressure and IV access has been lost. Will change hydralazine to oral into be used if systolic blood pressures greater than 140. Patient has been resumed on losartan. Anticipate monitoring patient overnight and discharged home tomorrow. Patient's will be contacted by Dr. Quesada as requested. 03/06: Patient's and daughter lives with her at the bedside. All information regarding plan and discharge plan shared with patient and his family. Patient states he slept well last evening. He has been reevaluated by psychiatry with recommendations to increase Prozac to 30 mg daily and decrease trazodone to 25 mg at bedtime. Patient continues to have very minimal tremors and will be transitioned to Librium at home on a taper and then start Campral on 03/07. Attempts will be made to set up follow-up with psychiatry even if this is virginal. Patient will be discharged home today in stable condition. ASSESSMENT AND PLAN 1. Alcohol withdrawal, with impending delirium tremens. 2. Dysthymia, without any suicidality or homicidality. 3. Lumbar disc disease. 4. Hypertension. 5. Hyperlipidemia. 6. Mild transaminitis, secondary to alcohol. 7. Impaired random blood sugars, A1c 6.0 8. Hypomagnesemia 9. Elevated red blood cell volume, megalocytosis 10. COVID-19 testing negative. DISCHARGE PLAN Home Impression and plan of care have been directed as dictated by the signing physician. Jeni Prasad nurse practitioner acting as scribe for signing physician. Patient Condition at Discharge: Stable Plan - Discharge Summary Discharge Rx Participant: No New Discharge Prescriptions: New Losartan [Cozaar] 100 mg PO DAILY #60 tab traZODone HCL [Desyrel] 25 mg PO HS #30 tab Magnesium Oxide [Mag-Ox] 400 mg PO BID tab Multivitamins, Thera [Multivitamin (formulary)] 1 each PO DAILY tab Pantoprazole [Protonix] 40 mg PO AC-BRKFST tab Acamprosate Calcium [Campral] 333 mg PO TID #90 tab Nicotine 21Mg/24Hr Patch [Habitrol] 1 patch TRANSDERM DAILY #30 patch Atorvastatin [Lipitor] 20 mg PO DAILY #30 tab FLUoxetine HCL [PROzac] 30 mg PO DAILY #30 cap rOPINIRole HCL [Requip] 0.75 mg PO HS #90 tab Discharge Medication List Acamprosate Calcium [Campral] 333 mg PO TID #90 tab 03/06/21 [Rx] Atorvastatin [Lipitor] 20 mg PO DAILY #30 tab 03/06/21 [Rx] FLUoxetine HCL [PROzac] 30 mg PO DAILY #30 cap 03/06/21 [Rx] Losartan [Cozaar] 100 mg PO DAILY #60 tab 03/06/21 [Rx] Magnesium Oxide [Mag-Ox] 400 mg PO BID tab 03/06/21 [Rx] Multivitamins, Thera [Multivitamin (formulary)] 1 each PO DAILY tab 03/06/21 [Rx] Nicotine 21Mg/24Hr Patch [Habitrol] 1 patch TRANSDERM DAILY #30 patch 03/06/21 [Rx] Pantoprazole [Protonix] 40 mg PO AC-BRKFST tab 03/06/21 [Rx] rOPINIRole HCL [Requip] 0.75 mg PO HS #90 tab 03/06/21 [Rx] traZODone HCL [Desyrel] 25 mg PO HS #30 tab 03/06/21 [Rx] Follow up Appointment(s)/Referral(s): Terence Rice MD [Primary Care Provider] - 1 Week (The office sent me to voicemail please call the office and make follow up.) Patient Instructions/Handouts: Fluoxetine (By mouth), Nicotine (Absorbed through the skin), Losartan (By mouth), Atorvastatin (By mouth), Ropinirole (By mouth), Acamprosate (By mouth), How to Stop Smoking (DC), Cigarette Smoking and Your Health (GEN), Depression (DC), Alcohol Intoxication (DC), Alcohol Withdrawal (DC) Activity/Diet/Wound Care/Special Instructions: Librium 10 mg tid x 5days, bid x5days, daily x5days, then stop. Presciption provided. Campral: 333 tid, start on Friday, 03/07. Follow up with Dr. Sandoval virtual visits, , [facility]. Discharge Disposition: HOME SELF-CARE
== END 2021-03-06 12:02 | disposition home or self-care (01) | DRG 897 ==
LOC: EC 10:07 → SUPCPDRO 10:07 → 5NMEDONC 13:26
PROVIDERS: ADMIT Family Medicine; ATTEND Family Medicine
DX: F10.139 Alcohol abuse with withdrawal, unspecified (principal); E78.5 Hyperlipidemia, unspecified; E83.42 Hypomagnesemia; E86.0 Dehydration; F17.200 Nicotine dependence, unspecified, uncomplicated; F34.1 Dysthymic disorder; F41.1 Generalized anxiety disorder; G25.81 Restless legs syndrome; G47.00 Insomnia, unspecified; I10 Essential (primary) hypertension; I25.10 Atherosclerotic heart disease of native coronary artery without angina pectoris; K21.9 Gastro-esophageal reflux disease without esophagitis; Z20.822 Contact with and (suspected) exposure to COVID-19; M51.9 Unspecified thoracic, thoracolumbar and lumbosacral intervertebral disc disorder; Z79.82 Long term (current) use of aspirin; Z79.899 Other long term (current) drug therapy; Z88.1 Allergy status to other antibiotic agents; Z88.2 Allergy status to sulfonamides; R74.01 Elevation of levels of liver transaminase levels; F32.9 Major depressive disorder, single episode, unspecified
CPT/HCPCS: 36415; 71046; 80053; 80061; 80306; 80320; 81003; 82150; 82550; 82607; 83036; 83690; 83735; 84484; 85025; 85610; 87635; 93005; 93306; 96361; 96372; 96374; 96376; 99285

== ENCOUNTER → 2021-04-18 | Outpatient (CLI) | payer BC ==
--- NOTE | 2021-04-25 08:07 | CTL ---
EXAMINATION TYPE: CT Low Dose Lung DATE OF EXAM ORDERED: 04/18/2021 HISTORY: Personal history tobacco use, Z 87.891, G0 297. Lung cancer screening CT DLP: 99.[address] CTDI: 2.8 mGy Automated exposure control for dose reduction was used. SCREENING VISIT: 1 COMPARISON: None TECHNIQUE: Low dose computed tomography scan was performed through the chest at 1 mm thick sections a nd reconstructed images in multiple planes at 1 mm and [address] DIAGNOSTIC QUALITY: Satisfactory FINDINGS: LUNG NODULES: None. LUNGS: COPD: Severity: Moderate Fibrosis: Severity: Mild Lymph nodes: None Other findings: RIGHT PLEURAL SPACE: Effusion: None Calcification: None Thickening: None Pneumothorax: None LEFT PLEURAL SPACE: Effusion: None Calcification: None Thickening: None Pneumothorax: None HEART: Heart Size: Normal Coronary Calcification: Moderate Pericardial Effusion: Normal OTHER FINDINGS: Upper abdomen: Liver shows scattered low attenuation foci likely represent cysts Bony thorax: Thoracic spondylosis is noted Supraclavicular region: Unremarkable Other: Root of the aorta is approximately 3.9 cm IMPRESSION: Negative CT LUNG RAD AND CT CHEST RECOMMENDATION: Lung-Rad 1 Negative: Continue annual screening with LDCT in 12 months. S Modifier (other clinically significant findings):
== END | disposition home or self-care (01) ==
LOC: RADCTMAIN 10:42
PROVIDERS: ATTEND Internal Medicine
DX: Z12.2 Encounter for screening for malignant neoplasm of respiratory organs (principal); Z87.891 Personal history of nicotine dependence
CPT/HCPCS: 71271

== ENCOUNTER 2021-05-16 11:48 | Day surgery (SDC) | payer BC ==
[2021-05-09 11:54] VITALS: BMI 27.8
--- NOTE | 2021-05-15 08:40 | P.HPOR ---
History of Present Illness H&P Date: 05/15/21 Chief Complaint: Right Carpal Tunnel Syndrome, Right Cubital Tunnel Syndrome Subjective: This is a 65 year old male that presents today for initial evaluation regarding bilateral hand paresthesias that have been present for roughly 5 years but have been progressing and becoming increasingly symptomatic over the last 1-2 years. Originally he states he noted numbness in predominatly the small finger but now this has progressed to all fingers on both hands, with the right hand being worse than the left. He has tried night splinting with minor relief. He recently had an EMG completed, denies any prior injury. Physical Examination: RUE: AIN/PIN/Radial/Ulnar/Median motor intact. Radial/Ulnar/Median SILT. 2+/4 Radial/Ulnar pulses palpated. Positive durkan's compression. 5/5 APB, 5/5 FDI. Elbow ROM 0-130. LUE: AIN/PIN/Radial/Ulnar/Median motor intact. Radial/Ulnar/Median SILT. 2+/4 Radial/Ulnar pulses palpated. Negative Durkan's compression. 5/5 APB, 5/5 FDI. Elbow ROM 0-130. EMG: EMG findings demonstrate mild to moderate carpal tunnel carpal tunnel syndrome slightly worse on the left. Mild to moderate bilateral cubital tunnel syndrome, no evidence of peripheral neuropathy or concurrent radiculopathy. Impression: 1.) Bilateral carpal tunnel syndrome, right worse than left 2.) Bilateral cubital tunnel syndrome, right worse than left. Plan: Diagnosis and treatment options were discussed with the patient. He has bilateral carpal and cubital tunnel syndrome with the right side being more symptomatic than the left. He has failed conservative treatment and is a candidiate for surgical intervention. Risks and benefit of surgery including bleeding, infection, damage to surrounding tissue, need for further surgery, possible need to convert to open carpal tunnel procedure, residual numbness were discussed and the patient wished to go forward with surgery for a right endoscopic, possible open, carpal tunnel release and right open cubital tunnel release. The patient was agreeable with this plan of action, he will obtain pre- operative clearance and surgery will be scheduled in the near future. -James Harris DO Orthopedic Hand/Upper Extremity Surgeon Past Medical History Past Medical History: Chest Pain / Angina, GERD/Reflux, Hypertension, Musculoske letal Disorder, Osteoarthritis (OA) Additional Past Medical History / Comment(s): "Chest pain was due to indigestion". Chronic back pain. History of Any Multi-Drug Resistant Organisms: None Reported Past Surgical History: Back Surgery, Heart Catheterization Additional Past Surgical History / Comment(s): Procedure for tooth abscess, cataract surgery. Past Anesthesia/Blood Transfusion Reactions: No Reported Reaction Past Psychological History: Anxiety, Depression Smoking Status: Former smoker Past Alcohol Use History: Abuse, Daily, Heavy Additional Past Alcohol Use History / Comment(s): Quit smoking 02/28/21, smoked 1 1/2 ppd for 45 yrs. No alcohol use since 02/28/21. Past Drug Use History: None Reported - Past Family History Father Family Medical History: Unable to Obtain Medications and Allergies Home Medications Medication Instructions Recorded Confirmed Type Atorvastatin [Lipitor] 20 mg PO DAILY #30 tab 03/06/21 05/09/21 Rx rOPINIRole HCL [Requip] 0.75 mg PO HS #90 tab 03/06/21 05/09/21 Rx traZODone HCL [Desyrel] 25 mg PO HS #30 tab 03/06/21 05/09/21 Rx Acamprosate Calcium [Campral] 333 mg PO BID 05/09/21 05/09/21 History Aspirin 81 mg PO DAILY 05/09/21 05/09/21 History FLUoxetine HCL [PROzac] 30 mg PO QAM 05/09/21 05/09/21 History Ibuprofen 600 mg PO Q6H PRN 05/09/21 05/09/21 History Losartan [Cozaar] 50 mg PO QAM 05/09/21 05/09/21 History Allergies Allergy/AdvReac Type Severity Reaction Status Date / Time sulfamethoxazole Allergy Rash/Hives Verified 05/09/21 11:40 [From Bactrim] trimethoprim [From Bactrim] Allergy Rash/Hives Verified 05/09/21 11:40 Physical Examination Osteopathic Statement: *. No significant issues noted on an osteopathic structural exam other than those noted in the History and Physical/Consult.
[~2021-05-16 11:48] MED LIST: DEXAMETHASONE SOD PHOSPHATE 4 MG/ML 1 ML VIAL IV ONE; HYDROmorphone 0.5 MG/0.5 ML SYRINGE IVP PRN; LACTATED RINGERS 1,000 ML IV SCH; LIDOCAINE 1% (10MG/ML) FOR IV START INTRADERMA PRN; ONDANSETRON 4 MG/2 ML VIAL IVP PRN; Pre Op ABX Message 1 EACH MISC MISCELLANE ONE
[2021-05-16 13:01] VITALS: RESP 16; TEMP 97.3
[2021-05-16] MEDS ORDERED: MIDAZOLAM 2 MG/2 ML VIAL IVP ONE (13:29)
[2021-05-16] MEDS ORDERED: KETAMINE 10 MG/ML 20 ML VIAL ONE (13:35)
[2021-05-16] MEDS ORDERED: ROPIVACAINE 5 MG/ML 30 ML VIAL ONE (13:35)
[2021-05-16] MEDS ORDERED: GLYCOPYRROLATE 0.2 MG/ML 2 ML VIAL ONE (13:35)
[2021-05-16] MEDS ORDERED: fentaNYL (PF) 50 MCG/ML 2 ML AMP ONE (13:35)
[2021-05-16] MEDS ORDERED: PROPOFOL 10 MG/ML 20 ML VIAL IV ONE (13:35)
--- NOTE | 2021-05-16 13:42 | P.ANPRN ---
Procedure Note - Anesthesia - Nerve Block Performed Right Supraclavicular Single Time Out Performed: Yes ([id number]) Date of Procedure: 05/16/21 Procedure Start Time: : Procedure Stop Time: :35 Location of Patient: PreOp Indication: Acute Post-Operative Pain, Analgesia, Dx/Pain Location, Requested by Surgeon Sedation Type: Sedate with meaningful contact maintained Preparation: Sterile Prep Position: Supine Needle Types: Pajunk Needle Gauge: 21 Ultrasound used to visualize needle placement: Yes (needle tip visualized) Injectate: 0.5% Ropivacaine (see comment for volume) Blood Aspirated: No Pain Paresthesia on Injection Noted: No Resistance on Injection: Normal Image Stored and Saved: Yes Events: Uneventful and Well Tolerated
[2021-05-16 15:05] VITALS: PULSE 71
[2021-05-16 15:15] VITALS: BP 118/81
--- NOTE | 2021-05-16 18:33 | P.OP ---
Date of Procedure: 05/16/21 Preoperative Diagnosis: 1.) Right Carpal Tunnel Syndrome 2.) Right Cubital Tunnel Syndrome Postoperative Diagnosis: 1.) Right Carpal Tunnel Syndrome 2.) Right Cubital Tunnel Syndrome Procedure(s) Performed: 1.) Right open cubital tunnel nerve 2.) Right endoscopic carpal tunnel release Anesthesia: MAC, regional Surgeon: James Harris Project Architect #1: Martin Lagunas Estimated Blood Loss (ml): 5 Pathology: none sent Condition: stable Disposition: PACU Description of Procedure: This is a 65 year old male who presents today for a right endoscopic carpal tunnel release and right cubital tunnel release after having failed conservative treatment in the past. Risks and benefits of surgery were discussed with the patient including bleeding, damage to surrounding tissue, infection, need to convert to open carpal tunnel procedure, need for further surgery as well as risks of anesthesia including pulmonary embolism and even and the patient wished to proceed with surgical intervention. The patients was seen in the pre- operative area by myself. Consent and H&P were completed and updated. The correct extremity was marked in the pre-operative area by myself and all other questions were answered. Operative Narrative: The patient was brought to the operating room by the department of anesthesia. They remained on the portable stretcher and a rolling hand table was brought to the side of the operative extremity. Pre-operative time out was performed indicating the correct patient, procedure and laterality. All in the room agreed. The patient was then drifted off to sleep by the department of anesthesia. He received a pre-operative nerve block per anesthesia. A nonsterile tourniquet was then applied to the operative extremity and the right upper extremity was then prepped and draped in normal sterile fashion. The ope rative extremity was the exsanguinated with an esmarch bandage and the tourniquet was inflated to 250mmHg. 15 blade scalpel was utilized to make curvilinear incision between the medial epicondyle and the olecranon process. Blunt dissection was then taken through subcutaneous tissue taking care to preserve branches of the medial antebrachial cutaneous nerve. Dissection was performed proximally and the ulnar nerve was identified and released up to the level of the intermuscular septum. Dissection was taken down to Osbornes ligament which appeared to be the area of most constriction on the nerve and the tissue overlying the ulnar nerve was released. Dissection was then taken distally down to the level of the two heads of the FCU and superficial and deep fascia was released and the ulnar nerve was freed from constriction along its entire course at the medial elbow. The elbow was ranged and the ulnar nerve was stable. Skin closure was performed using 4-0 Monocryl suture followed by 4-0 Nylon suture in a horizontal mattress fashion. Attention was then brought to the carpal tunnel portion of the procedure. 15 blade scalpel was utilized to make a transverse incision on the palmar skin just ulnar to the palmaris longus tendon at the level of the distal wrist crease. Ragnell retractor was then placed radially and blunt dissection was performed to reveal the distal forearm fascia. This was lifted with fine Artemio pick ups and Luciano tenotomy scissors were then used to open the forearm fascia transversely and a double skin hook was then placed. Hamate finder was placed into the carpal tunnel and then sequential sized dilators were inserted followed by the synovial elevator to separate the flexor tenosynovium from the undersurface of the transverse carpal ligament and a washboard texture was felt. The MicroAire endoscopic carpal tunnel release system gun was the then inserted into the carpal tunnel hugging the deep portion of the transverse carpal ligament in line with the base of the ring finger. Transverse fibers of the ligament were directly visualized. Pressure was applied on the palm to reveal the distal extent of the transverse carpal ligament. The blade was then deployed and the distal half of the transverse carpal ligament was released. The scope was then brought distal again and remaining transverse fibers were incised with the blade. The proximal half of the transverse carpal ligament was then divided and again the scope was advanced distal and remaining transverse fibers were incised with the blade. The radial and ulnar leaflets were directly visualized and mobile consistant with complete release. Tenotomy scissors were then utilized to release the remaining distal forearm fascia under direct visualization taking care to preserve the palmar cutaneous branch of the median nerve. Skin closure was performed with interrupted 4-0 Monocryl suture followed by Mastisol and steri strips. Sterile dressing was applied consisting of adaptic, 4x4s, Webril, a posterior plaster splint with the elbow at 90 degrees of flexion and an stephen bandage. Tourniquet was let down and the hand immediately was well perfused. The patient was then woken by the department of anesthesia and transferred to PACU in stable condition. James Harris D.O. Orthopedic Hand/Upper Extremity Surgeon
== END 2021-05-16 15:36 | disposition home or self-care (01) ==
LOC: OR 11:48
PROVIDERS: ATTEND Orthopaedic Surgery Hand Surgery
DX: G56.01 Carpal tunnel syndrome, right upper limb (principal); G56.21 Lesion of ulnar nerve, right upper limb; I10 Essential (primary) hypertension; M19.90 Unspecified osteoarthritis, unspecified site; K21.9 Gastro-esophageal reflux disease without esophagitis; Z88.2 Allergy status to sulfonamides; Z87.891 Personal history of nicotine dependence; Z79.899 Other long term (current) drug therapy
CPT/HCPCS: 64718; 29848; 64415; J2250; J1100; J2405; 76942

== ENCOUNTER → 2022-03-07 | Outpatient (CLI) | payer BC ==
--- NOTE | 2022-03-07 16:07 | XR ---
EXAMINATION TYPE: XR chest 2V DATE OF EXAM: 03/07/2022 3:59 PM COMPARISON: Chest radiographs from 03/03/2021 TECHNIQUE: XR chest 2V Frontal and lateral views of the chest. CLINICAL INDICATION:Male, 66 years old with history of [id number] ENCOUNTER FOR OTHER PREPROCEDURAL EXAMI NATION; FINDINGS: Lungs/Pleura: There is flattening of the diaphragm with increased lucency of the lungs and hyperinfla tion. No evidence of pneumothorax, pleural effusion or focal consolidation. Pulmonary vascularity: Unremarkable. Heart/mediastinum: Cardiomediastinal silhouette is unremarkable. Musculoskeletal: No acute osseous pathology. IMPRESSION: 1. No acute cardiopulmonary disease process. 2. COPD changes.
[2022-03-07 17:13] LABS: INR 0.9 (<1.2); Partial Thromboplastin Time 25.3 sec (22.0-30.0); Prothrombin Time 10.4 sec (9.0-12.0)
[2022-03-07 23:37] LABS: Basophils # (A) 0.06 X 10*3/uL (0.00-0.10); Eosinophils # (A) 0.26 X 10*3/uL (0.04-0.35); Eosinophils % (A) 4.4 %; HGB 15.6 g/dL (13.0-17.0); Immature Grans, Automated 0.2 %; Lymphocytes # (A) 2.47 X 10*3/uL (0.90-5.00); MCH 32.8 pg (27.0-32.0); MCHC 34.7 g/dL (32.0-37.0); MCV 94.5 fL (80.0-97.0); Mean Platelet Volume 10.1 fL (9.5-12.2); Monocytes # (A) 0.58 X 10*3/uL (0.20-1.00); Monocytes % (A) 9.9 %; NRBC Per 100 WBC 0 /100 WBCS (0.0-0.0); Neutrophils % (A) 42.5 %; Platelet Count 220 X 10*3/uL (140-440); RBC 4.76 X 10*6/uL (4.40-5.60); RDW 12.4 % (11.5-14.5); WBC 5.88 X 10*3/uL (4.50-10.00)
== END | disposition home or self-care (01) ==
LOC: RADXRMAIN 14:54
PROVIDERS: ATTEND Orthopaedic Surgery Orthopaedic Surgery of the Spine
DX: Z01.818 Encounter for other preprocedural examination (principal); J44.9 Chronic obstructive pulmonary disease, unspecified; E86.1 Hypovolemia; I48.91 Unspecified atrial fibrillation; R58 Hemorrhage, not elsewhere classified; Z79.01 Long term (current) use of anticoagulants; R30.9 Painful micturition, unspecified; R31.9 Hematuria, unspecified; Z86.2 Personal history of diseases of the blood and blood-forming organs and certain disorders involving the immune mechanism
CPT/HCPCS: 71046; 80048; 85025; 85610; 85730; 87070; 87086; 93005

== ENCOUNTER 2022-03-13 06:14 | Observation (INO) | payer BC ==
[2022-03-11 14:13] LABS: African American GFR (CKD) >90 (>60 ml/min/1.73 sqM); Anion Gap 10 mmol/L; Blood Urea Nitrogen 19 mg/dL (9-20); Calcium 9.3 mg/dL (8.4-10.2); Carbon Dioxide 26 mmol/L (22-30); Chloride 105 mmol/L (98-107); Glucose 98 mg/dL (74-99); Non-African American GFR(CKD) 85 (>60 ml/min/1.73 sqM); Potassium 4.4 mmol/L (3.5-5.1); Sodium 141 mmol/L (137-145)
[~2022-03-13 06:14] MED LIST changes: -DEXAMETHASONE SOD PHOSPHATE 4 MG/ML 1 ML VIAL IV ONE; -HYDROmorphone 0.5 MG/0.5 ML SYRINGE IVP PRN; -LACTATED RINGERS 1,000 ML IV SCH; -LIDOCAINE 1% (10MG/ML) FOR IV START INTRADERMA PRN; -ONDANSETRON 4 MG/2 ML VIAL IVP PRN; -Pre Op ABX Message 1 EACH MISC MISCELLANE ONE; +ceFAZolin 1,000 MG in SODIUM CHLORIDE 0.9% IRRIGATIO 1,000 ML IRRIGATION PRN
[2022-03-13] MEDS ORDERED: DEXAMETHASONE SOD PHOSPHATE 4 MG/ML 1 ML VIAL IV ONE (06:19)
[2022-03-13] MEDS ORDERED: ONDANSETRON 4 MG/2 ML VIAL IVP ONE (06:19)
[2022-03-13] MEDS: LACTATED RINGERS 1,000 ML IV SCH (07:10)
[2022-03-13] MEDS ORDERED: THROMBIN (BOVINE) 5,000 UNIT VIAL TOPICAL ONE (07:29)
[2022-03-13] MEDS ORDERED: BUPIVACAINE (PF) 0.25% 30 ML VIAL SQ ONE ×2 (07:29)
[2022-03-13] MEDS ORDERED: GELATIN SPONGE,ABSORB (LARGE) 1 EACH SPONGE TOPICAL ONE (07:29)
[2022-03-13] MEDS ORDERED: LIDOCAINE 1%-EPI 1:100,000 20 ML VIAL SQ ONE ×2 (07:29)
[2022-03-13] MEDS ORDERED: LACTATED RINGERS 1,000 ML IV ONE ×2 (09:00→12:08)
[2022-03-13] MEDS ORDERED: BENZOCAINE/MENTHOL LOZENG 1 EACH LOZENGE MUCOUS MEM PRN (11:29)
[2022-03-13] MEDS ORDERED: ONDANSETRON 4 MG/2 ML VIAL IVP PRN (11:29)
[2022-03-13] MEDS ORDERED: SENNOSIDES-DOCUSATE SODIUM 1 EACH TAB PO PRN (11:29)
[2022-03-13] MEDS ORDERED: MAGNESIUM HYDROXIDE 2,400 MG/10 ML CUP PO PRN (11:29)
[2022-03-13] MEDS ORDERED: HYDROmorphone 0.5 MG/0.5 ML SYRINGE IVP PRN (11:29)
[2022-03-13] MEDS ORDERED: HYDROcodone/APAP 5-325MG 1 EACH TAB PO PRN (11:32)
[2022-03-13] MEDS: HYDROmorphone 0.5 MG/0.5 ML SYRINGE IVP PRN ×5 (11:32→12:06)
--- NOTE | 2022-03-13 11:44 | P.OP ---
Date of Procedure: 03/13/22 Preoperative Diagnosis: Severe spinal stenosis L3 4, spondylolisthesis L3 4, lower extremity radiculopathy, lower extremity weakness, low back pain, history of prior lumbar fusion L4 5, adjacent level degeneration L3 4, facet arthrosis, disc protrusion L3 4 Postoperative Diagnosis: Same with findings of solid fusion L4 5 Anesthesia: GETA Pathology: none sent Condition: stable Disposition: PACU Description of Procedure: DESCRIPTION OF PROCEDURE(S): BRIEF OPERATIVE NOTE Preoperative Diagnosis: Severe spinal stenosis L3 4, spondylolisthesis L3 4, lower extremity radiculopathy, lower extremity weakness, low back pain, history of prior lumbar fusion L4 5, adjacent level degeneration L3 4, facet arthrosis, disc protrusion L3 4 Postoperative Diagnosis: Same, with findings of solid fusion L4 5 Procedure: Removal of deep hardware L4 5 Exploration of fusion L4 5 with findings of solid fusion Laminectomy and decompression L3 [address] navigation aided Minimally invasive Posterior lateral decompression and facet fusion L3 4 Minimally invasive Transforaminal lumbar interbody fusion for a 360 fusion L3 4 Discectomy for decompression L3 4 Placement of interbody graft L3 4 Use of computer navigation for fusion Local autogenous bone grafting Aspiration of bone marrow from the vertebral body pedicle at L3 Use of bone graft extenders Surgeon: Dr. Mcqueen Smoking Tobacco Cutter Operator: Maxwell OLMEDO who is present throughout the entire the case persistence during positioning, dissection, exposure, visualization, and all crucial elements of the case as well as closure. Anesthesia: General anesthesia per Estimated blood loss: Approximately 200 mL Complications: None apparent Components implanted: K2M minimally invasive Ciales pedicle screw system withscrews measuring 6.5 mm in diameter to rods one expandable interbody cage with 10 mL of osteo amp bio4 bone graft substitute and 30 mL of the BX bone fibers to supplement the local autogenous bone graft and bone marrow aspirate We removed pedicle screws and rods and Screws at L4 and L5 which are examined and found to be in total Disposition: To recovery room in good stable condition. OPERATIVE INDICATIONS The patient has had severe issues at their lower extremity in her lower back over the past several years with significant worsening over the past several months. Over the past few months the patient had pain at their back and their lower extremities. He has long history of lumbar issues and had undergone prior decompression and fusion at L4 5 in the past for his lower extremity weakness. Patient initially had some improvement with his but has been having worsening pain and radicular symptoms correlated well with his findings of adjacent level degeneration with stenosis at L3 4. The patient is having severe radicular symptoms at their lower extremity with weakness. The patient is having significant pain in their back. They are unable to obtain any comfort. We did aggressive conservative treatment with medications therapy and interventional pain management however thery were not having any relief. The patient also showed evidence of a listhesis with some dynamic instability. The patient has been through conservative treatment. We discussed various treatment options including surgery, and the patient wishes to proceed with surgery We discussed the risk, patient's alternatives and benefits of surgery including but not limited to, risk of bleeding risk of infection, risk of need for further surgery, risk of decreased, loss of motion, muscle function, malunion nonunion, hardware failure, nerve damage, paralysis, heart attack, blindness and . They understood issues with the current pandemic and the possibility of exposure. OPERATIVE SUMMARY After discussing all the risks, patient alternatives and benefits at length, the patient elected to proceed with surgical intervention, signed informed consent, and presented for their procedure. The patient was seen and examined in the preoperative holding area and the surgical site was marked. The patient was given antibiotics and brought to the operating room. The patient was sedated and intubated by anesthesia in standard fashion. The patient was positioned on to the operating room table in a prone position on the appropriate frame which was well-padded and well molded. We were careful to pad any bony prominences and pressure points. We were careful to maintain the patient's cervical spine and good neutral alignment and position throughout. The patient was prepped and draped in a normal standard fashion. An appropriate timeout and keystone protocol performed. We were able to proceed with the surgery. The local wound area was infiltrated with local anesthetic. I was able to utilize the prior incisions at his lumbar spine and extending cephalad and caudad. As able establish incisions over the area and then dissect over the fascia and split the fascia over the facet joints bilaterally. As able to expose and split the muscles in line with the fibers to gain access to the screw heads at L4 and L5. The screws had good stability within the bones and I was able to establish a Scribd CT navigation guide referencing device over the s crew head and sofy to get good fixation for a intraoperative spin with 3-D reconstruction using the same navigation. We did an appropriate spin and it showed the hardware intact at L4-L5 the rods intact. It showed the interbody bone growth at L4 5 which appeared to be solid as well. I was also able to easily visualize L3 vertebrae. We had good navigation spin for visualization and 3-D reconstruction of the lumbar spine. I was able to establish a Jamshidi needle over the lateral aspect of the pedicle at L3 bilaterally and advanced the trocar into the pedicle being careful not to breech superiorly inferiorly medially or laterally using computer navigation device. Position was confirmed regularly with AP and lateral images on C-arm and with the computer navigation device at the appropr iate levels bilaterally. I was able to establish the trocar into the pedicle appropriately into the posterior aspect of the vertebral body bilaterally at the appropriate levels. At the superior vertebrae of L3 I was able to take approximately 25 mL of bone aspiration for use later in the case to supplement the allograft and autograft bone. I was able place the guidewire into the trocar and into the vertebral body appropriately under C-arm guidance. Dissection was taken down over the wire to the appropriate starting position for the screw placed at L3 bilaterally. The appropriate length screw was chosen, threaded over the guidewire and screwed appropriately into the pedicle and vertebral body under C-arm guidance in excellent alignment and position with good bony purchase. I then explored the L4 and L5 screw sites more completely. The Screws removed bilaterally and the rods removed as well. Also true expose the screws themselves and remove the screws from the vertebrae at L4 and L5 bilaterally. There were checked and found to be in total. As able checked the screw hole I with ball-tip feeler and it had good for garcia and a good base on the right side at L4. On the left side at L4 I do not feel good bony wall or a good base. The superior wall had breaches as well. I do not feel had a good site for placement of a new screw at L4. I was able palpate along the L5 screw hole on the left and it had good for garcia. It was intact and stable. I decided to use that screw hole and place a new screw at L5 on the left. Thus I placed 2 new screws at L3 bilaterally 1 new screw at L4 on the right and 1 new screw at L5 on the left. I was able to check for any motion at L4 5 and there was no evidence of any motion. I felt he had establish a good fusion at L4 5. With the screws intact I extended the incision to connect the screw hole sites on the most symptomatic side on the right. I dissected down to establish access over the pars and lamina to the base of the spinous process. I was able to expose the facet joint. The capsule the facet was taken down and showed some facet arthrosis at the joint. I was able to use a combination of curettes and Kerrison rongeurs and a high-speed drill to take down the facet joint and do a facetectomy. I was able get excellent foraminal decompression and central decompression with undermining across midline to perform a laminectomy centrally and contralaterally. As able get good central decompression. The ligamentum flavum was taken down to further decompress centrally and at bilateral neural foramen. The tissue was noted be significant only tenuous and somewhat tattered with scar tissue diffusely. I was able to mobilize the nerve roots and the dura. There was significant scar tissue over the dura itself and I removed as much as possible without damaging the dura. There was a small dural abrasion and I placed some Tisseel over the area but there is no evidence of active leak. I was able to expose the disc space and visualize the traversing nerve root. Note was made of some disc protrusion and disc herniation that was abutting the traversing nerve root at the level causing further compression of the nerve root. I was able to establish a annulotomy at the appropriate level of L3 4 protecting soft tissue and neural structures. Note was made of some disc desiccation at the disc. I performed a complete discectomy with accommodation of curettes and rasps and scrapers. I was able get good endplate preparation at the disc space. I sized for the appropriate size interbody spacer protecting the soft tissue and neural structures. The wound was copiously irrigated and suctioned dry. There is no evidence of any dural tear or leak. I was able to pack the disc space with local autogenous bone graft as well as a small amount of bone graft which was also placed into the interbody cage itself. Protecting the soft tissue structures and neural structures I was able place the interbody cage in good alignment and good position. I used an expandable cage and extended it to get good deal and fixation into the endplates with good fit and fill at the interbody space. Position was confirmed with C-arm guidance. Good hemostasis maintained. There is no evidence of any dural tear or leak. The wound was irrigated and suctioned dry. With the hardware intact, intraoperative C-arm imaging was again taken which showed good alignment and position of the hardware at the appropriate levels. We were then able to measure, contour and place the rods and appropriate hardware bilaterally. I used the screws at L3 and 4 on the right and screws from L3 and L5 on the left. I used the screws to connect the rods. I was able to place capcrews, tighten them down, and torque them with the torque screwdriver appropriately. With this intact I was able to place the local autogenous bone graft with additional bone graft enhancer as necessary into the posterior lateral gutters over the decorticated transverse processes and facet joints on the contralateral side. The remainder of the bone graft was placed over the facet joint on the contralateral side after taking down the facet joint capsule. With the bone graft intact, a stable construct, and good decompression at the appropriate levels, we were able to proceed with closure. Good hemostasis was maintained. There is no evidence of dural tear or leak. The fascia was closed for a watertight closure. he subcuticular tissue was closed with absorbable suture. The wound was cleaned and dried and dressed with the appropriate dressing. The drapes were broken down. The patient was gently rolled back onto their hospital bed being careful to maintain their cervical spine and good neutral alignment and position. They were woken up by anesthesia, extubated, and brought to the recovery room in good stable condition. The patient will be admitted to the hospital for appropriate postoperative care, medical management and monitoring. We will continue to follow them closely about the postoperative course.
--- NOTE | 2022-03-13 11:53 | FL ---
Fluoroscopy HISTORY: fusion 19 seconds fluoroscopy time supplied to the referring clinician. 11 intraoperative C-arm images docu ment the procedure. See dictated report from orthopedic surgery.
[2022-03-13] MEDS ORDERED: fentaNYL (PF) 50 MCG/ML 2 ML AMP IVP ONE ×3 (12:18→13:39)
[2022-03-13] MEDS: HYDROcodone/APAP 5-325MG 1 EACH TAB PO PRN ×2 (14:00→19:51)
[2022-03-13] MEDS ORDERED: HYDROmorphone 0.5 MG/0.5 ML SYRINGE IVP ONE (14:37)
[2022-03-13] MEDS: diazePAM 5 MG TAB PO PRN ×2 (15:28→23:50)
--- NOTE | 2022-03-13 16:16 | P.CONS ---
History of Present Illness - Reason for Consult Consult date: 03/13/22 Medical management - History of Present Illness Patient is a 66-year-old male with past medical history of dyslipidemia presenting for elective lumbar spinal fusion for lumbar radiculopathy. He is status post spinal fusion L4-L5. [facility] physicians is consulted for medical management. He denies any current chest pain, shortness of breath, palpitations, lightheadedness, abdominal pain, urinary or bowel complaints. His last bowel movement was yesterday. He currently has a Alicea catheter in place. Patient seen and examined at bedside. Pertinent positives and negatives as discussed in HPI, a complete review of systems was performed and all other systems are negative. Vital signs reviewed General: nontoxic, no distress, appears at stated age Derm: warm, dry Head: atraumatic, normocephalic, symmetric Eyes: EOMI, no lid lag, anicteric sclera, pupils equal round reactive to light ENT: Nose and ears atraumatic, no thrush, no pharyngeal erythema Neck: No thyromegaly, trachea midline, supple Mouth: no lip lesion, mucus membranes moist Cardiovascular: S1S2 reg, no murmur, no edema, capillary refill less than 2 seconds Lungs: clear to auscultation bilateral, no rhonchi, no rales, no wheeze, no accessory muscle use Abdominal: soft, nontender to palpation, no guarding, no appreciable organ omegaly, normal bowel sounds Ext: no gross muscle atrophy, muscle strength muscle strength 5 out of 5 in all 4 extremities, no contractures, back dressing Neuro: CN II-XII grossly intact, light touch intact all 4 extremities Psych: Alert, oriented, appropriate affect Assessment/Plan: Status post lumbar fusion surgery -DVT prophylaxis and pain control per surgery Dyslipidemia -Continue atorvastatin Nicotine dependence -Nicotine patch -Counseled regarding smoking cessation Full code SCDs for due to prophylaxis Thank you for allowing us to participate in the care of this pleasant patient. Do not hesitate to contact us with questions. Someone can be reached from the [facility] hospitalist group all hours of the day at [phone] or via [employer]. Past Medical History Past Medical History: COPD, GERD/Reflux, Hypertension, Musculoskeletal Disorder, Osteoarthritis (OA) Additional Past Medical History / Comment(s): Chronic back pain. History of Any Multi-Drug Resistant Organisms: None Reported Past Surgical History: Back Surgery, Heart Catheterization Additional Past Surgical History / Comment(s): BACK SURGERY X 2. Procedure for tooth abscess, cataract surgery ([facility]) Past Anesthesia/Blood Transfusion Reactions: No Reported Reaction Past Psychological History: Anxiety, Depression Additional Psychological History / Comment(s): One pack per day Smoking Status: Current every day smoker Past Alcohol Use History: Daily, Heavy Additional Past Alcohol Use History / Comment(s): 5 CIGS PER DAYS for 45 yrs. No alcohol use since 02/28/21. Past Drug Use History: None Reported - Past Family History Father Family Medical History: Unable to Obtain Medications and Allergies Home Medications Medication Instructions Recorded Confirmed Type Ibuprofen 600 mg PO Q6H PRN 05/09/21 03/11/22 History HYDROcodone/APAP 5-325MG [[place] 1 tab PO Q4HR PRN 3 Days #18 tab 05/16/21 Rx 5-325] Atorvastatin [Lipitor] 20 mg PO HS 03/11/22 03/11/22 History Allergies Allergy/AdvReac Type Severity Reaction Status Date / Time sulfamethoxazole Allergy Rash/Hives Verified 03/11/22 10:35 [From Bactrim] trimethoprim [From Bactrim] Allergy Rash/Hives Verified 03/11/22 10:35 Physical Exam Vitals: Vital Signs Temp Pulse Resp BP Pulse Ox 03/13/22 14:50 87 14 158/79 95 03/13/22 14:25 92 14 137/85 99 03/13/22 13:25 63 14 145/78 98 03/13/22 12:54 83 14 129/76 100 03/13/22 12:39 82 16 142/74 100 03/13/22 12:24 76 16 153/72 100 03/13/22 12:08 74 14 154/76 96 03/13/22 11:53 81 12 137/71 95 03/13/22 11:38 80 12 130/73 100 03/13/22 11:22 97.3 F L 87 16 135/78 100 03/13/22 06:46 97 F L 87 20 131/92 99 Intake and Output 03/13/22 03/13/22 03/13/22 06:59 14:59 22:59 Intake Total 2151 Output Total 850 Balance 1301 Intake: IV 2151 Output: Urine 650 Estimated Blood Loss 200 Other: Weight 91.2 kg 91.2 kg Results CBC & Chem 7: 03/11/22 13:31
[2022-03-13] MEDS: HYDROmorphone 1 MG/ML 1 ML SYRINGE IVP PRN ×2 (17:38→21:33)
[2022-03-13] MEDS: NICOTINE 14MG/24HR PATCH TRANSDERM SCH (17:40)
[2022-03-13] MEDS: CYCLOBENZAPRINE 10 MG TAB PO PRN (17:41)
[2022-03-13] MEDS: ATORVASTATIN 20 MG TAB PO SCH (19:52)
[2022-03-13] MEDS ORDERED: HYDROcodone/APAP 5-325MG 1 EACH TAB PO STA (19:59)
[2022-03-14] MEDS: HYDROcodone/APAP 10-325MG 1 EACH TAB PO PRN ×5 (01:11→20:59)
[2022-03-14] MEDS: CYCLOBENZAPRINE 10 MG TAB PO PRN (02:34)
[2022-03-14] MEDS: HYDROmorphone 1 MG/ML 1 ML SYRINGE IVP PRN ×4 (03:21→18:55)
[2022-03-14] MEDS: SENNOSIDES-DOCUSATE SODIUM 1 EACH TAB PO SCH (07:09)
--- NOTE | 2022-03-14 09:03 | P.PN ---
Progress Note - Text Progress Note Date: 03/14/22 Postoperative day #1 Patient is seen and examined today at bedside. The patient is complaining of significant pain around the surgical site and great difficulty controlling his pain even with medications. He has not really moved from his bed since his surgery. He says his legs are doing okay. He is not having new symptoms in his legs. He still has his Alicea intact. He is not been nauseous but is not been hungry and has only had some fluids with minimal oral intake Physical Exam Afebrile with stable vital signs Abdomen is soft nontender. Chest has good excursion deep and space expiration The incision site is clean dry and intact. No erythema there is no purulence. Extremities have not had neurologic change from prior to surgery. He is able to move his legs and that he has some chronic weakness in his left lower extremity Calves and thighs were soft nontender without evidence of DVT. Assessment/Plan Postoperative day #1 status post decompression and fusion L3 4 with extension of the prior fusion from L4 5 for his severe spinal stenosis with lower extremity radiculopathy and low back pain Patient is progressing somewhat slowly from the surgery in terms of his pain control and mobility. We have really maximized his medication dosages for pain and we'll try to keep the frequency quite regular so that he gets some medication every 2 hours at least for the next 24 hours. Hopefully at that point we will be able to start to spread out the frequency and diminish the dose slough his mentation clear and his tolerance of his pain. I discussed the importance of him getting up out of bed today. We'll discontinue the Alicea and start to mobilize him with physical therapy. We will continue to increase the patient's mobilization with therapy. We will continue pain control with oral or IV medications. We'll continue to follow patient closely.
--- NOTE | 2022-03-14 12:49 | P.PN ---
Subjective Progress Note Date: 03/14/22 Principal diagnosis: s/p lumbar surgery Hospital Course: Patient is a 66-year-old male with past medical history of dyslipidemia presenting for elective lumbar spinal fusion for lumbar radiculopathy. He is status post spinal fusion L4-L5. [facility] physicians is consulted for medical management. Subjective: Patient seen and examined at bedside. No acute events overnight. He denies any chest pain, shortness of breath, abdominal pain, urinary complaints. He still has not had any bowel movements. Claims that he was passing gas. Continues to have a Alicea catheter in place, plan for discontinuation today. He has not moved out of the bed yet. Pertinent positives and negatives as discussed above, a complete review of systems was performed and all other systems are negative. Vitals Signs Reviewed. General: nontoxic, no distress, appears at stated age Derm: warm, dry Head: atraumatic, normocephalic, symmetric Eyes: EOMI, no lid lag, anicteric sclera, pupils equal round reactive to light ENT: Nose and ears atraumatic Neck: No thyromegaly Mouth: no lip lesion, mucus membranes moist Cardiovascular: S1S2 reg, no murmur, no edema Lungs: clear to auscultation bilateral, no rhonchi, no rales, no wheeze, no accessory muscle use Abdominal: soft, nontender to palpation, no guarding, no appreciable organomegaly, normal bowel sounds Ext: no gross muscle atrophy, muscle strength muscle strength 5 out of 5 in all 4 extremities, no contractures, back dressing Neuro: CN II-XII grossly intact, light touch intact all 4 extremities Psych: Alert, oriented, appropriate affect Assessment and Plan: Status post lumbar fusion surgery -DVT prophylaxis and pain control per surgery -post op Abx - senna for bowel regimen -PT/OT Dyslipidemia -Continue atorvastatin Nicotine dependence -Nicotine patch -Counseled regarding smoking cessation Full code SCDs for due to prophylaxis Thank you for allowing us to participate in the care of this pleasant patient. Do not hesitate to contact us with questions. Someone can be reached from the [facility] hospitalist group all hours of the day at [phone] or via perfect serve. Objective - Vital Signs Vital signs: Vital Signs Temp 99.1 F 03/14/22 07:28 Pulse 89 03/14/22 08:00 Resp 17 03/14/22 08:00 BP 137/72 03/14/22 07:28 Pulse Ox 96 03/14/22 07:28 FiO2 Intake & Output 03/13/22 03/14/22 03/14/22 18:59 06:59 18:59 Intake Total 2201 Output Total 850 1800 Balance 1351 -1800 Weight 91.2 kg Intake: IV 2151 Intake, IV Titration 50 Amount ceFAZolin 2 gm In Sodium 50 Chloride 0.9% 50 ml @ 100 mls/hr IVPB Q8HR [facility] Rx# :[id number] Output: Urine 650 1800 Estimated Blood Loss 200 Other: Voiding Method Indwelling Catheter Indwelling Catheter - Labs CBC & Chem 7: 03/11/22 13:31
[2022-03-14] MEDS: NICOTINE 14MG/24HR PATCH TRANSDERM SCH (12:53)
[2022-03-14 13:10] LABS: African American GFR (CKD) 107.3 (60.0-200.0); Anion Gap 10.9 mmol/L (10.00-18.00); BUN/Creat Ratio 17.28 Ratio (12.00-20.00); Blood Urea Nitrogen 14.5 mg/dL (9.0-27.0); Calcium 8.9 mg/dL (8.7-10.3); Carbon Dioxide 26.4 mmol/L (20.0-27.5); Non-African American GFR(CKD) 92.6 (60.0-200.0); Potassium 4.7 mmol/L (3.5-5.5)
[2022-03-14 14:59] LABS: Basophils # (A) 0.04 X 10*3/uL (0.00-0.10); Basophils % (A) 0.3 %; Eosinophils # (A) 1.41 X 10*3/uL (0.04-0.35); Eosinophils % (A) 11.7 %; HCT 43.7 % (39.6-50.0); HGB 14.3 g/dL (13.0-17.0); Immature Grans, Automated 0.4 %; Lymphocytes # (A) 1.59 X 10*3/uL (0.90-5.00); Lymphocytes % (A) 13.2 %; MCH 31.8 pg (27.0-32.0); MCHC 32.7 g/dL (32.0-37.0); MCV 97.3 fL (80.0-97.0); Mean Platelet Volume 10.3 fL (9.5-12.2); Monocytes # (A) 1.71 X 10*3/uL (0.20-1.00); Monocytes % (A) 14.2 %; NRBC Per 100 WBC 0 /100 WBCS (0.0-0.0); Neutrophils # (A) 7.26 X 10*3/uL (1.80-7.70); Neutrophils % (A) 60.2 %; Platelet Count 174 X 10*3/uL (140-440); RBC 4.49 X 10*6/uL (4.40-5.60); RDW 12.3 % (11.5-14.5); WBC 12.06 X 10*3/uL (4.50-10.00)
[2022-03-14 15:00] LABS: RBC Morphology NORMAL
[2022-03-14] MEDS: LACTATED RINGERS 1,000 ML IV SCH (20:58)
[2022-03-14] MEDS: ATORVASTATIN 20 MG TAB PO SCH (20:59)
[2022-03-15] MEDS: HYDROmorphone 1 MG/ML 1 ML SYRINGE IVP PRN ×3 (00:21→10:44)
[2022-03-15] MEDS: CYCLOBENZAPRINE 10 MG TAB PO PRN ×2 (00:26→08:36)
[2022-03-15] MEDS: HYDROcodone/APAP 10-325MG 1 EACH TAB PO PRN ×3 (03:17→14:02)
--- NOTE | 2022-03-15 08:09 | P.PN ---
Progress Note - Text Progress Note Date: 03/15/22 Postoperative day #2 Patient is seen and examined today at bedside. The patient has some pain around the surgical site as expected, but he feels his pain is significantly better today than yesterday. Pain is being controlled with medication, but he still requiring IV pain medications. His appetite is improved and he has had some breakfast. He did get up to the side of the bed yesterday but did not ambulate significantly. He is voiding freely into the urinal in bed Physical Exam Afebrile with stable vital signs Abdomen is soft nontender. Chest has good excursion deep and space expiration The incision site is clean dry and intact. No erythema there is no purulence. Extremities have not had neurologic change from prior to surgery. He feels like he has further strength of plantarflexion on the right. He has good motion in his bilateral lower extremities Calves and thighs were soft nontender without evidence of DVT. Assessment/Plan Postoperative day #2 status post minimally invasive decompression and fusion L3 4 with extension of his fusion from L4 5 and removal of old hardware for his severe spinal stenosis lower extremity radiculopathy weakness Patient is progressing as expected from the surgery. He is making progress with his pain control and hopefully we'll make further progress with his mobilization ambulation today We will continue to increase the patient's mobilization with therapy. He is wondering if he will be able to go home today but we would need to see him mobilize in and out of bed on his own and be able to maintain his pain control without any IV medication. If he is able to do this then it would be okay to go home today but if not we can wait another night. We will continue pain control with oral or IV medications. We'll continue to follow patient closely.
[2022-03-15] MEDS: SENNOSIDES-DOCUSATE SODIUM 1 EACH TAB PO SCH (08:36)
[2022-03-15] MEDS: NICOTINE 14MG/24HR PATCH TRANSDERM SCH (08:36)
[2022-03-15] MEDS: LACTATED RINGERS 1,000 ML IV SCH (08:38)
--- NOTE | 2022-03-15 13:20 | P.PN ---
Subjective Progress Note Date: 03/15/22 Principal diagnosis: s/p lumbar surgery Hospital Course: Patient is a 66-year-old male with past medical history of dyslipidemia presenting for elective lumbar spinal fusion for lumbar radiculopathy. He is status post spinal fusion L4-L5. [facility] is consulted for medical management. Subjective: Patient seen and examined at bedside. No acute events overnight. He denies any chest pain, shortness of breath, abdominal pain, urinary complaints. He still has not had any bowel movements. Claims that he was passing gas. He was able to sit at the edge of the bed yesterday. He will try to ambulate with therapy today. Pertinent positives and negatives as discussed above, a complete review of systems was performed and all other systems are negative. Vitals Signs Reviewed. General: nontoxic, no distress, appears at stated age Derm: warm, dry Head: atraumatic, normocephalic, symmetric Eyes: EOMI, no lid lag, anicteric sclera, pupils equal round reactive to light ENT: Nose and ears atraumatic Neck: No thyromegaly Mouth: no lip lesion, mucus membranes moist Cardiovascular: S1S2 reg, no murmur, no edema Lungs: clear to auscultation bilateral, no rhonchi, no rales, no wheeze, no accessory muscle use Abdominal: soft, nontender to palpation, no guarding, no appreciable organomegaly, normal bowel sounds Ext: no gross muscle atrophy, muscle strength muscle strength 5 out of 5 in all 4 extremities, no contractures, back dressing Neuro: CN II-XII grossly intact, light touch intact all 4 extremities Psych: Alert, oriented, appropriate affect Assessment and Plan: Status post lumbar fusion surgery -DVT prophylaxis and pain control per surgery -post op Abx - senna for bowel regimen -PT/OT Dyslipidemia -Continue atorvastatin Nicotine dependence -Nicotine patch -Counseled regarding smoking cessation Full code SCDs for due to prophylaxis Patient is medically optimized for discharge from medicine standpoint. Pending further physical therapy. Thank you for allowing us to participate in the care of this pleasant patient. Do not hesitate to contact us with questions. Someone can be reached from the [facility] hospitalist group all hours of the day at [phone] or via perfect serve. Objective - Vital Signs Vital signs: Vital Signs Temp 98.4 F 03/15/22 07:51 Pulse 85 03/15/22 07:51 Resp 17 03/15/22 07:51 BP 142/84 03/15/22 07:51 Pulse Ox 95 03/15/22 07:51 FiO2 Intake & Output 03/14/22 03/15/22 03/15/22 18:59 06:59 18:59 Output Total 600 1800 Balance -600 -1800 Output: Urine 600 1800 Other: Voiding Method Indwelling Catheter Urinal - Labs CBC & Chem 7: 03/14/22 06:32 03/14/22 06:32 Labs: Abnormal Lab Results - Last 24 Hours (Table) 03/14/22 Range/Units 06:32 WBC 12.06 H (4.50-10.00) X 10*3/uL MCV 97.3 H (80.0-97.0) fL Immature Gran # 0.05 H (0.00-0.04) X 10*3/uL Monocytes # 1.71 H (0.20-1.00) X 10*3/uL Eosinophils # 1.41 H (0.04-0.35) X 10*3/uL
[2022-03-15 13:59] VITALS: BP 119/74; PULSE 98; RESP 16; TEMP 98.7
--- NOTE | 2022-03-15 17:07 | P.DS ---
Providers Date of admission: 03/14/22 00:55 Expected date of discharge: 03/15/22 Attending physician: Laron Mcqueen Consults: 03/13/22 11:29 Consult Physician Routine Consulting Provider: Cris Aguilera Consult Reason/Comments: Medical management Do you want consulting provider notified?: Yes Primary care physician: Tobin Asher MD - Discharge Diagnosis(es) (1) S/P lumbar fusion Current Visit: Yes Status: Acute (2) History of lumbar fusion Current Visit: Yes Status: Acute (3) Lumbar stenosis Current Visit: Yes Status: Acute (4) Lumbar radicular pain Current Visit: Yes Status: Acute (5) Lower extremity weakness Current Visit: Yes Status: Acute (6) Spondylolisthesis, lumbar region Current Visit: Yes Status: Acute (7) Lumbar facet arthropathy Current Visit: Yes Status: Acute (8) Low back pain Current Visit: Yes Status: Acute Hospital Course: Patient is a 66-year-old male who is status post L3-4 minimally invasive posterior lateral decompression and fusion with removal of deep hardware at L4-5 performed on 03/13/2022. Operatively he has had improvement of the symptoms throughout the day. He has been able to discontinue IV Dilantin. His pain is being controlled with oral medications. He feels he is ready for discharge home today. Patient is eating and voiding without difficulty. Patient was cleared for surgery by Dr. Asher. Patient is clear for discharge home today. He s hould avoid excessive bending, twisting, lifting; no lifting greater than 10 pounds. He may shower with his Optifoam dressings intact. Dressings may be removed in 72 hours and he may shower without dressing intact at that time if his surgical sites remained clean, dry, and intact. Patient will follow up in approximately 2 weeks for further evaluation the outpatient setting. MAPS was previously reviewed. Medications were sent to his pharmacy as requested by the patient. Prescription sent for Neodesha 10mg/325 mg take 1-2 tabs every 6 hours as needed for pain. Prescription was sent for Cyclobezaprine 10 mg 1 tab 3 times a day as needed for muscle spasm, dispensed #60. Procedures: L3-4 minimally invasive posterior lateral decompression and fusion with exploration of and removal of deep hardware at L4-5 Patient Condition at Discharge: Stable Plan - Discharge Summary Discharge Rx Participant: No New Discharge Prescriptions: New HYDROcodone/APAP 10-325MG [Neodesha 10-325] 1 tab PO Q4HR PRN #42 tab PRN Reason: Pain Cyclobenzaprine [Flexeril] 10 mg PO TID PRN #60 tab PRN Reason: Muscle Spasm No Action HYDROcodone/APAP 5-325MG [Ne[place]ha 5-325] 1 tab PO Q4HR PRN 3 Days #18 tab PRN Reason: Pain Ibuprofen 600 mg PO Q6H PRN PRN Reason: Pain Atorvastatin [Lipitor] 20 mg PO HS Discharge Medication List Ibuprofen 600 mg PO Q6H PRN 05/09/21 [History] HYDROcodone/APAP 5-325MG [Neodesha 5-325] 1 tab PO Q4HR PRN 3 Days #18 tab 05/16/21 [Rx] Atorvastatin [Lipitor] 20 mg PO HS 03/11/22 [History] Cyclobenzaprine [Flexeril] 10 mg PO TID PRN #60 tab 03/15/22 [Rx] HYDROcodone/APAP 10-325MG [Ne[place]ha 10-325] 1 tab PO Q4HR PRN #42 tab 03/15/22 [Rx] Follow up Appointment(s)/Referral(s): Laron Mcqueen DO [Doctor of Osteopathic Medicine] - 03/29/22 2:30 pm Activity/Diet/Wound Care/Special Instructions: Keep site clean. May shower with waterproof Optifoam intact. Do not soak in a tub. After 72 hours postoperatively, patient May remove dressing and then may shower with area uncovered. Leave glue intact and allow it to fray off on its own. May ambulate as tolerated. Avoid heavy or rigorous activity. No repetitive bending twisting or lifting. No overhead work. Discharge Disposition: HOME SELF-CARE
== END 2022-03-15 18:06 | disposition home or self-care (01) ==
LOC: OR 06:14 → 4SSUR 11:12 → OR 03-14 00:55
PROVIDERS: ADMIT Orthopaedic Surgery Orthopaedic Surgery of the Spine; ATTEND Orthopaedic Surgery Orthopaedic Surgery of the Spine
DX: M48.061 Spinal stenosis, lumbar region without neurogenic claudication (principal); M47.26 Other spondylosis with radiculopathy, lumbar region; M51.26 Other intervertebral disc displacement, lumbar region; E78.5 Hyperlipidemia, unspecified; F17.210 Nicotine dependence, cigarettes, uncomplicated; J44.9 Chronic obstructive pulmonary disease, unspecified; K21.9 Gastro-esophageal reflux disease without esophagitis; I10 Essential (primary) hypertension; F41.9 Anxiety disorder, unspecified; F32.A Depression, unspecified; Z98.42 Cataract extraction status, left eye; Z98.41 Cataract extraction status, right eye; Z79.899 Other long term (current) drug therapy; Z88.2 Allergy status to sulfonamides
CPT/HCPCS: 96376 ×2; 96365; 96366 ×2; 96375; 97530; 97161; 97167; 86900; 86901; 80048 ×2; 85025; 86850; 72100; 20680; 22612; 22853; 20930; 20936; G0378 ×2; C1713 ×2; C1762 ×2; S4990 ×3; J0690 ×4; J2405; J3010; J1170 ×4

== ENCOUNTER → 2022-05-29 | Outpatient (CLI) | payer BC ==
--- NOTE | 2022-05-30 06:50 | CTL ---
EXAMINATION TYPE: CT Low Dose Lung DATE OF EXAM ORDERED: 05/29/2022 HISTORY: Long-term tobacco use. Lung cancer screening CT DLP: 108.[address] CTDI: 2.9 mGy Automated exposure control for dose reduction was used. SCREENING VISIT: First study after baseline COMPARISON: Prior study April 18, 2021. TECHNIQUE: Low dose computed tomography scan was performed through the chest at 1 mm thick sections a nd reconstructed images in multiple planes at 1 mm and [address] DIAGNOSTIC QUALITY: Satisfactory FINDINGS: LUNG NODULES: None. LUNGS: COPD: Severity: [id number] Fibrosis: Severity: Mild scattered Lymph nodes: None Other findings: None RIGHT PLEURAL SPACE: Effusion: None Calcification: None Thickening: None Pneumothorax: None LEFT PLEURAL SPACE: Effusion: None Calcification: None Thickening: None Pneumothorax: None HEART: Heart Size: Normal Coronary Calcification: Moderate to severe three-vessel Pericardial Effusion: None OTHER FINDINGS: Upper abdomen: Small round hypodense lesions throughout the liver favor benign thin-walled cysts Bony thorax: Slightly S-shaped scoliotic curvature with mild to moderate multilevel spurring in the s pine. Supraclavicular region: None Other: None IMPRESSION: [id number] emphysematous change without significant new Greater than [address] LUNG RAD AND CT CHEST RECOMMENDATION: Lung-Rad 1 Negative: Continue annual screening with LDCT in 12 months. S Modifier (other clinically significant findings): S Moderate to severe three-vessel coronary artery calcification should be correlated with additional ca rdiac risk factors.
== END | disposition home or self-care (01) ==
LOC: RADCTMAIN 12:45
PROVIDERS: ATTEND Internal Medicine
DX: Z12.2 Encounter for screening for malignant neoplasm of respiratory organs (principal); J43.9 Emphysema, unspecified; Z87.891 Personal history of nicotine dependence
CPT/HCPCS: 71271

== ENCOUNTER → 2022-12-27 | Outpatient (CLI) | payer MEDICARE, BC ==
--- NOTE | 2022-12-27 10:08 | US ---
EXAMINATION TYPE: US duplex aorta DATE OF EXAM: 12/27/2022 COMPARISON: NONE CLINICAL INDICATION: Male, 67 years old with history of Z13.6 screening for AAA; screening, no sympto ms, no family history, h/o smoking TECHNIQUE: Multiple sonographic images of the abdominal aorta are obtained. FINDINGS: EXAM MEASUREMENTS: Abdominal Aorta: Proximal: 2.3 x 2.3cm Mid: 1.8 x 2.3cm Distal: 1.9 x 2.4cm Bifurcation: Rt = 1.4cm Lt = 1.3cm HVAC/R INSTRUCTOR NOTES: Calcifications seen throughout, increased caliber at distal without evidence of AA A IMPRESSION: No evidence for AAA
== END | disposition home or self-care (01) ==
LOC: RADUSWWP 08:16
PROVIDERS: ATTEND Internal Medicine
DX: Z13.6 Encounter for screening for cardiovascular disorders (principal)
CPT/HCPCS: 93979

== ENCOUNTER → 2023-06-23 | Outpatient (CLI) | payer MEDICARE, BC ==
--- NOTE | 2023-06-23 08:26 | CTL ---
EXAMINATION TYPE: CT Low Dose Lung DATE OF EXAM ORDERED: 06/23/2023 COMPARISON: 05/29/2022 HISTORY: . Low Dose CT Lung Screening CT DLP: [address] CTDI: 2.6 mGy IV CONTRAST USED: None. SCREENING VISIT: First visit COMPARISON: None. TECHNIQUE: Low dose computed tomography scan was performed through the chest at 1 millimeter thick se ctions and reconstructed images in the coronal plane at [address] DIAGNOSTIC QUALITY: Satisfactory FINDINGS: LUNG NODULES: Not presentLeft lung: no nodules identified.Right lung: no nodules identified. LUNGS: COPD: Severity: Mild to moderate Fibrosis: Severity:None Lymph nodes: None Other findings: None RIGHT PLEURAL SPACE: Effusion: None Calcification: None Thickening: None Pneumothorax: None LEFT PLEURAL SPACE: Effusion: None Calcification: None Thickening: None Pneumothorax: None HEART: Heart Size: Mildly enlarged Coronary calcification: Mild Pericardial effusion: None OTHER FINDINGS: Upper abdomen: No significant abnormality Bony thorax: Degenerative changes Supraclavicular region: No significant abnormalityOther: No significant abnormalityI IMPRESSION: Emphysematous changes. No concerning nodules over [address] CHEST RECOMMENDATION: Follow-up screening in one year CT LUNG RAD: LUNG RAD CATEGORY 1 negative
== END | disposition home or self-care (01) ==
LOC: RADCTMAIN 07:45
PROVIDERS: ATTEND Internal Medicine
DX: Z12.2 Encounter for screening for malignant neoplasm of respiratory organs (principal); J43.9 Emphysema, unspecified; Z87.891 Personal history of nicotine dependence
CPT/HCPCS: 71271

== ENCOUNTER → 2024-03-02 | Outpatient (CLI) | payer MEDICARE, BC ==
[2024-03-02 14:45] LABS: INR 0.9 (<1.2); Partial Thromboplastin Time 23.8 sec (22.0-30.0); Prothrombin Time 10.5 sec (10.0-12.5)
[2024-03-02 18:42] LABS: Basophils # (A) 0.07 X 10*3/uL (0.00-0.10); Basophils % (A) 0.7 %; Eosinophils # (A) 0.22 X 10*3/uL (0.04-0.35); Eosinophils % (A) 2.2 %; HCT 51.4 % (39.6-50.0); HGB 17.4 g/dL (13.0-17.0); Lymphocytes # (A) 2.15 X 10*3/uL (0.90-5.00); Lymphocytes % (A) 21.8 %; MCH 34.5 pg (27.0-32.0); MCHC 33.9 g/dL (32.0-37.0); MCV 101.8 FL (80.0-97.0); Mean Platelet Volume 10.7 FL (9.5-12.2); Monocytes # (A) 0.91 X 10*3/uL (0.20-1.00); Monocytes % (A) 9.2 %; NRBC Per 100 WBC 0 X 10*3/uL (0.00-0.01); Neutrophils # (A) 6.46 X 10*3/uL (1.80-7.70); Neutrophils % (A) 65.5 %; Platelet Count 183 X 10*3/uL (140-440); RBC 5.05 X 10*6/uL (4.40-5.60); RDW 12.2 % (11.5-14.5); WBC 9.87 X 10*3/uL (4.50-10.00)
[2024-03-02 18:54] LABS: ALT 21 U/L (10-49); AST 19 U/L (14-35); Albumin 4.5 g/dL (3.8-4.9); Albumin/Globulin Ratio 1.61 Ratio (1.60-3.17); Alkaline Phosphatase 91 U/L (41-126); Blood Urea Nitrogen 16.5 mg/dL (9.0-27.0); Carbon Dioxide 24.3 mmol/L (21.6-31.8); Chloride 102 mmol/L (96-109); Globulin 2.8 g/dL (1.6-3.3); Glucose 92 mg/dL (70-110); Potassium 4.6 mmol/L (3.5-5.5); Sodium 138 mmol/L (135-145); Total Bilirubin 0.4 mg/dL (0.3-1.2); Total Protein 7.3 g/dL (6.2-8.2)
== END | disposition home or self-care (01) ==
LOC: LABPAT 13:38
PROVIDERS: ATTEND Orthopaedic Surgery Orthopaedic Surgery of the Spine
CPT/HCPCS: 80053; 85025; 85610; 85730; 86850; 86900; 86901; 87070; 87086

== ENCOUNTER 2024-03-10 05:36 | Inpatient (IN) | payer MEDICARE, BC ==
[2024-03-10] MEDS: IV FLUID CONTINUATION 1,000 ML IV ONE ×3 (06:17→12:58)
[2024-03-10] MEDS: LACTATED RINGERS 1,000 ML IV SCH (06:38)
[2024-03-10] MEDS: ONDANSETRON 4 MG/2 ML VIAL IVP ONE (06:42)
[2024-03-10] MEDS ORDERED: VANCOMYCIN IV PER PHARMACY 1 EACH MISC MISCELLANE PRN ×2 (07:18→17:09)
[2024-03-10] MEDS ORDERED: ROCURONIUM 10 MG/ML (5 ML VIAL) IV ONE (07:25)
[2024-03-10] MEDS ORDERED: MIDAZOLAM 2 MG/2 ML VIAL ONE (07:25)
[2024-03-10] MEDS ORDERED: LIDOCAINE 1% INJ 10MG/ML (20 ML MDV) ONE (07:25)
[2024-03-10] MEDS ORDERED: PHENYLEPHRINE 10 MG/ML VIAL ONE (07:25)
[2024-03-10] MEDS ORDERED: PROPOFOL 10 MG/ML 20 ML VIAL IV ONE (07:25)
[2024-03-10] MEDS ORDERED: NEOSTIGMINE 1 MG/ML 10 ML VIAL ONE (07:25)
[2024-03-10] MEDS ORDERED: SUCCINYLCHOLINE CHLORIDE 200 MG/10 ML VIAL IV ONE (07:25)
[2024-03-10] MEDS ORDERED: GLYCOPYRROLATE 0.2 MG/ML 2 ML VIAL ONE (07:25)
[2024-03-10] MEDS ORDERED: fentaNYL (PF) 50 MCG/ML 2 ML AMP ONE (07:25)
[2024-03-10] MEDS ORDERED: TRANEXAMIC 1,000 MG/100ML-NACL PREMIX BAG ONE (07:25)
[2024-03-10] MEDS ORDERED: HYDROmorphone (PF) 1 MG/ML ONE (07:25)
[2024-03-10] MEDS: THROMBIN (BOVINE) 5,000 UNIT VIAL TOPICAL ONE (07:30)
[2024-03-10] MEDS: ceFAZolin 1,000 MG in SODIUM CHLORIDE 0.9% IRRIGATIO 1,000 ML IRRIGATION PRN ×2 (07:30→09:36)
[2024-03-10] MEDS: VANCOMYCIN 1,500 MG in SODIUM CHLORIDE 0.9% 500 ML 500 ML IVPB PRN (07:55)
[2024-03-10] MEDS: LIDOCAINE 1%-EPI 1:100,000 20 ML VIAL SQ ONE (07:57)
--- NOTE | 2024-03-10 10:30 | P.OP ---
Date of Procedure: 03/10/24 Preoperative Diagnosis: Severe spinal stenosis L2-3, lower extremity radiculopathy, lower extremity weakness, adjacent level degeneration, prior decompression fusion L3-4 L4-5 with retained hardware Postoperative Diagnosis: Same with findings of a broken screw at L3 on the right Anesthesia: GETA Pathology: none sent Condition: stable Disposition: PACU Description of Procedure: DESCRIPTION OF PROCEDURE(S): BRIEF OPERATIVE NOTE Preoperative Diagnosis: Severe spinal stenosis L2-3, lower extremity radiculopathy, lower extremity weakness, adjacent level degeneration, prior decompression fusion L3-4 L4-5 with retained hardware Postoperative Diagnosis: Same with findings of a fractured screw at L3 on the right Procedure: Removal of deep hardware L3-L4-L5 pedicle screws and rods open laminectomy and wide decompression with partial medial facetectomy and foraminotomies bilaterally L2-[address] navigation aided placement of hardware and evaluation of fusion L2-3 L3-4 Posterior lateral decompression and fusion L2-3 Use of computer navigation for fusion Local autogenous bone grafting Aspiration of bone marrow from the vertebral body pedicle at L2 on the right Use of bone graft extenders Surgeon: Dr. Mcqueen Reporter: Maxwell OLMEDO who is present throughout the entire the case persistence during positioning, dissection, exposure, visualization, and all crucial elements of the case as well as closure. Anesthesia: General anesthesia per Dr. Valadez Estimated blood loss: Approximately 150 mL Complications: None apparent Components implanted: K2M minimally invasive [place] pedicle screw system withscrews measuring 6.5 mm in diameter to rods bone matrix bone graft sheets substitute and 30 mL of the BX bone fibers to supplement the local autogenous bone graft and bone marrow aspirate Disposition: To recovery room in good stable condition. OPERATIVE INDICATIONS The patient has had severe issues at their lower extremity in her lower back over the past several years with significant worsening over the past several months. The patient has a long history of lumbar issues and has been through multiple surgeries in the past for his lumbar spine including decompression fusion L4-5 and then subsequent decompression fusion L3-4. He had done well initially with each of those surgeries in the past. Over the past couple years he has been developing some increased pain in his back. Over the past few months the patient had significant increase in pain at their back and their lower extremities. The patient is having severe radicular symptoms at their lower extremity with weakness. The patient is having significant pain in their back. They are unable to obtain any comfort. We did aggressive conservative treatment with medications therapy and interventional pain management however thery were not having any relief. The patient also showed evidence of a listhesis with some dynamic instability as well as severe stenosis L2-3 which correlated well with his back and lower extremity symptoms. The patient has been through conservative treatment. We discussed various treatment options including surgery, and the patient wishes to proceed with surgery We discussed the risk, patient's alternatives and benefits of surgery including but not limited to, risk of bleeding risk of infection, risk of need for further surgery, risk of decreased, loss of motion, muscle function, malunion nonunion, hardware failure, nerve damage, paralysis, heart attack, blindness and . They understood issues with the current pandemic and the possibility of exposure. OPERATIVE SUMMARY After discussing all the risks, patient alternatives and benefits at length, the patient elected to proceed with surgical intervention, signed informed consent, and presented for their procedure. The patient was seen and examined in the preoperative holding area and the surgical site was marked. The patient was given antibiotics and brought to the operating room. The patient was sedated and intubated by anesthesia in standard fashion. The patient was positioned on to the operating room table in a prone position on the appropriate frame which was well-padded and well molded. We were careful to pad any bony prominences and pressure points. We were careful to maintain the patient's cervical spine and good neutral alignment and position throughout. The patient was prepped and draped in a normal standard fashion. An appropriate timeout and keystone protocol performed. We were able to proceed with the surgery. The local wound area was infiltrated with local anesthetic. With his prior surgeries and the retained hardware with the adjacent level issues felt to be best to do open procedure and I made incision at the midline from L2-L4. I was able to dissect down over the midline and over the lamina out to the pedicle screws at L3 bilaterally. It was easy to expose the sofy and the pedicle screw over L4 on the right as well. And the left side exposed down along the sofy as well. I was able to expose over the facet joint and down to the transverse processes at L2 and L3. With the orientation of the hardware and the space involved at the area for extension of the fusion it appeared that it would be extremely difficult to attach to the prior hardware appropriately with an extension sofy. I felt it would be most advantageous at that point to remove the old hardware and establish new hardware for the current fusion. First I decided to place new screws at L2 bilaterally. I was able to insert a clamp with a navigation device light truck driver. With this established I draped the patient appropriately and did an intraoperative CT guided spin with the [employer] system. I was able to evaluate position for new screws at L2 as well as evaluate the interbody fusions at L3-4 and L4-5 which showed solid bony fusion at the interbody spaces. I prepared to place screws bilaterally at L2. I was able to establish a Jamshidi needle over the lateral aspect of the pedicle and advanced the trocar into the pedicle being careful not to breech superiorly inferiorly medially or laterally using computer navigation device. Position was confirmed regularly with AP and lateral images on C-arm and with the computer navigation device at the appropriate levels bilaterally at L2 and this was checked visually as well. I was able to establish the trocar into the pedicle appropriately into the posterior aspect of the vertebral body bilaterally at the appropriate levels. This was done at each of the pedicle positions and each of the vertebrae. At the superior vertebrae of L2 I was able to take approximately 15 mL of bone aspiration for use later in the case to supplement the allograft and autograft bone. I was able place the guidewire into the trocar and into the vertebral body appropriately under C-arm guidance. Dissection was taken down over the wire to the appropriate starting position for the screw placed. The appropriate length screw was chosen, threaded over the guidewire and screwed appropriately into the pedicle and vertebral body under C-arm guidance in excellent alignment and position with good bony purchase at L2 bilaterally. I was able to expose the transverse processes at L2 and L3 and decorticate them appropriately. I then felt that we had to move remove the prior hardware in order to get appropriate new fixation. The Screws were removed and on the left side the screws removed at L3 and L5 they had good bony purchase and they were removed and found to be in total. The screw holes were checked and found to be intact. On the right side we removed the Screws and the rods in the L3 screw on the right as it came out was somewhat loose and found to be fractured approximate the mid screw shaft. The remainder of the screw was deep into the pedicle and vertebral body and I felt that trying to retrieve the remainder of that screw would cause more harm and felt that it was okay to leave the remainder that screw in place. The L4 screw on the right was removed and found to be in total. The screw hole was checked and found to be solid as well. I placed a new 6.5 screw on the left at L3 and a new 7.5 screw on the right at L4. All the screws were checked with stimulation and not had any stimulation at over 20 mA. With his complex today then turn my attention to the decompression. I was able to use a combination of curettes and Kerrison rongeurs and a high-speed drill to take down the facet joint and do a wide central decompression with partial medial facetectomy and bilateral foraminotomies. I was able get excellent foraminal decompression I was able to get excellent central and wide foraminal decompression. The ligamentum flavum was taken down to further decompress centrally and at bilateral neural foramen. The wound was copiously irrigated and suctioned dry. There is no evidence of any dural tear or leak. Good hemostasis maintained. There is no evidence of any dural tear or leak. The wound was irrigated and suctioned dry. I then prepared to place rods bilaterally. I felt we had good decompression and excellent ability for stabilization. Rods were placed bilaterally and contoured appropriately with Screws placed and tightened appropriately the construct checked found of excellent stability. With the hardware intact, intraoperative C-arm imaging was again taken which showed good alignment and position of the hardware at the appropriate levels. I was able to place capcrews, tighten them down, and torque them with the torque screwdriver appropriately. With this intact I was able to place the local autogenous bone graft with additional bone graft enhancer as necessary into the posterior lateral gutters over the decorticated transverse processes and facet joints bilaterally the remainder of the bone graft was placed over the facet joint on the contralateral side after taking down the facet joint capsule. With the bone graft intact, a stable construct, and good decompression at the appropriate levels, we were able to proceed with closure. Good hemostasis was maintained. There is no evidence of dural tear or leak. The fascia was closed for a watertight closure. he subcuticular tissue was closed with absorbable suture. The wound was cleaned and dried and dressed with the appropriate dressing. The drapes were broken down. The patient was gently rolled back onto their hospital bed being careful to maintain their cervical spine and good neutral alignment and position. They were woken up by anesthesia, extubated, and brought to the recovery room in good stable condition. The patient will be admitted to the hospital for appropriate postoperative care, medical management and monitoring. We will continue to follow them closely about the postoperative course.
[2024-03-10] MEDS ORDERED: NALOXONE 0.4 MG/ML 1 ML VIAL IV PRN ×2 (10:31→17:07)
[2024-03-10] MEDS: HYDROmorphone 0.5 MG/0.5 ML SYRINGE IVP PRN (10:31)
[2024-03-10] MEDS ORDERED: MAGNESIUM HYDROXIDE 2,400 MG/30 ML CUP PO PRN (10:31)
--- NOTE | 2024-03-10 10:47 | XR ---
EXAMINATION TYPE: XR lumbar spine 2 or 3V, FL guidance operating room DATE OF EXAM: 03/10/2024 Comparison: None Clinical History: 68-year-old male SPINAL STENOSIS FLUOROSCOPY Spinal stenosis, Dr. Charisse Phipps time- 8 min 43 sec Dap- 397.48 No images available for review. [facility], , 03/10/2024 10:45 AM
[2024-03-10] MEDS: ONDANSETRON 4 MG/2 ML VIAL IVP PRN ×2 (11:42→21:20)
[2024-03-10] MEDS: DEXAMETHASONE SOD PHOSPHATE 4 MG/ML 1 ML VIAL IV ONE (14:27)
[2024-03-10] MEDS: HYDROmorphone PCA 10 MG/50 ML BAG IV PRN (15:25)
[2024-03-10] MEDS ORDERED: PROCHLORPERAZINE INJ 10 MG/2 ML VIAL IVP PRN (17:21)
--- NOTE | 2024-03-10 17:41 | P.CONS ---
History of Present Illness - Reason for Consult Consult date: 03/10/24 Medical Management Requesting physician: Laron Mcqueen - History of Present Illness History of Presenting Illness: Patient is a very pleasant 68-year-old male with a past medical history of hyperlipidemia, GERD, osteoarthritis and spinal stenosis. He is currently admitted under orthospine surgery team status post extensive lumbar surgery by Dr. Mcqueen. We were consulted for medical management throughout hospitalization. Patient seen and fully evaluated in room 485. He currently reports having postoperative nausea but denies any episodes of vomiting. He denies having any other complaints including headache, lightheadedness, dizziness, chest pain, palpitations, shortness of breath, or experiencing any focal numbness/tingling/weakness in his extremities. Alicea catheter is in place. Review of systems: Pertinent positives and negatives as discussed in HPI, a complete review of systems was performed and all other systems are negative. Physical exam: Vital signs reviewed and stable. General: Nontoxic, no distress and appears stated age. Derm: Skin warm and dry, normal coloration for ethnicity. Head: Atraumatic, normocephalic and symmetric. Eyes: EOM's intact, no lid lag, and anicteric sclera Mouth: no lip lesions, mucus membranes moist Cardiovascular: regular rate and rhythm with normal S1S2, no murmur, positive posterior tibial pulses bilaterally, and cap refill < 2 seconds. Lungs: Respirations even, regular, and unlabored on room air. Lungs CTA bilaterally, no rhonchi, no rales, no wheezing, and no accessory muscle usage. Abdominal: soft, nontender to palpation, no guarding, no appreciable organomegaly. Alicea catheter in place. Ext: Movement and sensation intact. No gross muscle atrophy, no edema, no contractures Neuro: Speech clear, face symmetrical and CN II-XII grossly intact with no noted focal neuro deficits Psych: Alert and oriented to person, place, time, and situation. Appropriate and pleasant affect. Assessment and Plan of Care: Status post extensive lumbar surgery -Management per primary admitting orthospine surgery team including DVT prophylaxis, pain management, weightbearing, and PT/OT. Postoperative nausea -Patient received Zofran, reporting no improvement. Orders placed for Compazine 10 mg IVP every 6 hours. Hyperlipidemia -Continue daily medication management with rosuvastatin 5 mg nightly. GERD -GI prophylaxis with Protonix 40 mg daily. Vital Signs reviewed: -Blood pressure 151/98, heart rate 79, respiratory rate 18, temp 97.6 F, and SpO2 of 96% on room air. Thank you for allowing us to participate in the care of this pleasant patient. Do not hesitate to contact us with questions. Someone can be reached from the [facility] hospitalist group all hours of the day at [phone] or via [employer]. Patient was seen independently by Nurse Practitioner. This document was prepared using [employer] dictation software. Please allow for errors in primary teaching assistant while rare they do occur. I reviewed the documentation as provided by the BENNETT above, who is the original author of this note. I agree with the documented assessment and plan, with the following changes: none Past Medical History Past Medical History: Chest Pain / Angina, GERD/Reflux, Hyperlipidemia, Mu sculoskeletal Disorder, Osteoarthritis (OA) Additional Past Medical History / Comment(s): "Chest pain was due to indigestion". Chronic back pain. History of Any Multi-Drug Resistant Organisms: None Reported Past Surgical History: Back Surgery, Heart Catheterization Additional Past Surgical History / Comment(s): Procedure for tooth abscess, cataract surgery. rt wrtist carpal tunnel and elbow nerve surgery fx ankles as child Past Anesthesia/Blood Transfusion Reactions: No Reported Reaction Additional Past Anesthesia/Blood Transfusion Reaction / Comm: no transfusion hx Smoking Status: Current every day smoker - Past Family History Father Family Medical History: Unable to Obtain Medications and Allergies Home Medications Medication Instructions Recorded Confirmed Type Ibuprofen 600 mg PO Q6H PRN 05/09/21 03/10/24 History Acetaminophen Tab [Tylenol Tab] 500 mg PO Q6H PRN 03/03/24 03/10/24 History HYDROcodone/APAP 5-325MG [[place] 1 tab PO Q8H PRN 03/03/24 03/10/24 History 5-325] Rosuvastatin Calcium [Crestor] 5 mg PO HS 03/03/24 03/10/24 History HYDROcodone/APAP 10-325MG [[place] 1 tab PO Q4HR PRN #42 tab 03/12/24 Rx 10-325] Allergies Allergy/AdvReac Type Severity Reaction Status Date / Time sulfamethoxazole Allergy Rash/Hives Verified 03/10/24 06:13 [From Bactrim] trimethoprim [From Bactrim] Allergy Rash/Hives Verified 03/10/24 06:13 Physical Exam Vitals: Vital Signs Temp Pulse Resp BP Pulse Ox 03/10/24 14:26 97.6 F 79 18 151/90 96 03/10/24 14:00 91 16 136/81 95 03/10/24 13:30 89 16 140/77 97 03/10/24 13:00 89 16 141/80 97 03/10/24 12:45 86 16 150/82 96 03/10/24 12:30 90 16 147/77 96 03/10/24 12:15 90 16 147/82 96 03/10/24 12:00 85 16 150/81 93 L 03/10/24 11:45 82 16 136/78 95 03/10/24 11:30 86 16 150/83 96 03/10/24 11:15 89 16 160/86 98 03/10/24 11:00 92 16 140/78 99 03/10/24 10:51 89 16 159/80 98 03/10/24 10:36 82 16 143/80 97 03/10/24 10:21 97.8 F 88 16 154/85 98 03/10/24 06:24 97.6 F 88 16 166/93 97 Intake and Output 03/10/24 03/10/24 03/10/24 06:59 14:59 22:59 Intake Total 200 1302 Output Total 1125 Balance 200 177 Intake: IV 200 1302 Output: Urine 975 Estimated Blood Loss 150 Other: Weight 93.3 kg Results CBC & Chem 7: 03/12/24 06:35 03/12/24 06:35
[2024-03-10] MEDS: ATORVASTATIN 10 MG TAB PO SCH (19:42)
[2024-03-10] MEDS: HYDROcodone/APAP 10-325MG 1 EACH TAB PO PRN (19:42)
[2024-03-10] MEDS: SENNOSIDES-DOCUSATE SODIUM 1 EACH TAB PO SCH (19:42)
[2024-03-10] MEDS: VANCOMYCIN 1,500 MG in SODIUM CHLORIDE 0.9% 500 ML 500 ML IVPB SCH (20:52)
[2024-03-10] MEDS: diazePAM 2 MG TAB PO PRN (22:24)
[2024-03-11] MEDS: MORPHINE SULFATE 4 MG/ML SYRINGE IVP STA (02:34)
[2024-03-11] MEDS: PANTOPRAZOLE 40 MG TABLET PO SCH (06:25)
[2024-03-11 08:25] LABS: Basophils # (A) 0.05 X 10*3/uL (0.00-0.10); Basophils % (A) 0.4 %; Eosinophils # (A) 0.06 X 10*3/uL (0.04-0.35); Eosinophils % (A) 0.5 %; HCT 42.1 % (39.6-50.0); HGB 14.3 g/dL (13.0-17.0); Lymphocytes # (A) 1.42 X 10*3/uL (0.90-5.00); Lymphocytes % (A) 11.8 %; MCV 100.2 FL (80.0-97.0); Mean Platelet Volume 10.9 FL (9.5-12.2); Monocytes # (A) 1.31 X 10*3/uL (0.20-1.00); Monocytes % (A) 10.9 %; NRBC Per 100 WBC 0 X 10*3/uL (0.00-0.01); Neutrophils # (A) 9.15 X 10*3/uL (1.80-7.70); Neutrophils % (A) 76.2 %; Platelet Count 134 X 10*3/uL (140-440); RDW 11.9 % (11.5-14.5); WBC 12.02 X 10*3/uL (4.50-10.00)
[2024-03-11] MEDS ORDERED: MORPHINE SULFATE 4 MG/ML SYRINGE IV PRN (08:56)
[2024-03-11 09:01] LABS: BUN/Creat Ratio 15.29 Ratio (12.00-20.00); Blood Urea Nitrogen 10.7 mg/dL (9.0-27.0); Calcium 8.6 mg/dL (8.7-10.3); Carbon Dioxide 23.5 mmol/L (21.6-31.8); Chloride 105 mmol/L (96-109); Glucose 108 mg/dL (70-110); Magnesium 1.8 mg/dL (1.5-2.4); Potassium 3.8 mmol/L (3.5-5.5); Sodium 140 mmol/L (135-145)
[2024-03-11] MEDS: MORPHINE PCA 50 MG/50 ML BAG IV PRN (10:18)
--- NOTE | 2024-03-11 11:10 | P.PN ---
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 Patient states they are doing well post operatively. He was having some difficulty with pain control overnight with Dilaudid. His pain medication was transitioned to morphine this morning. He is also receiving oral medications. Currently he feels like his pain is adequately controlled. He states his low back pain and lower extremity symptoms have improved postoperatively. He states he is currently experiencing less pain than he was after his last lumbar surgical intervention. He is currently sitting in a bedside chair without difficulty. Currently does not complain of nausea, vomiting, fever, or chills. Patient states pain has been adequately controlled. Patient is eating without difficulty. His Alicea catheter was discontinued this morning. He has not been up yet to try to void. He was seen and examined by medicine this morning who did adjust his narcotic medication for pain control. Physical Exam Lumbar Fusion: Status post surgical day number 1 Patient is awake, alert, and oriented 3 Vital signs stable Good chest excursion with deep inspiration and expiration Dorsiflexion, plantarflexion, and extensor hallucis longus positive sustained bilaterally No signs or symptoms of DVT; no calf pain; pneumatic cuffs not currently intact bilateral lower extremities Optifoam dressings are dry and intact with 1 spot of dried blood over the midline of the lumbar spine; no erythema, purulence, or signs of infection Neurovascularly intact bilaterally lower extremities Assessment: Status post L2-3 open posterior lateral decompression and fusion with t removal of hardware L3-4 and L4-5 L2-3 severe lumbar spinal stenosis Low back pain Lower extremity weakness Lower extremity radiculopathy Lumbar adjacent level degenerative disc disease History of previous decompression fusion L3-4 and L4-5 with retained hardware Hypertension Hyperlipidemia GERD Plan: 1. Ambulate as tolerated; work with Physical Therapy to increase mobilization; he is encouraged to utilize a walker to aid in ambulation as needed 2. Continue pain control with IV and oral medications; will plan to begin weaning the patient off of IV narcotic medication in anticipation for discharge home in the next 1-2 days; if he continues to improve, we may plan for discharge home as early as tomorrow, 03/12/2024. 3. Dressings to remain intact with Optifoam; patient may shower with dressings intact 4. Medical management can continue to manage patient for patient's other medical diagnoses 5. We will continue to follow the patient closely; depending on the patient's progress, we may plan for discharge home as early as tomorrow, 6. Patient can follow-up with Maxwell Marquez PA-C or Dr. Azeem Mcqueen at [facility] in 2-3 weeks following discharge Patient is seen and examined as well. I agree with the above. As he continues to improve he is hopeful to go home tomorrow. His MANAGER PAYROLL has been changed to morphine which seems to be suiting him better without nausea. We will also restart the oral Lexa's to try to transition for tomorrow. His nausea is improving.
--- NOTE | 2024-03-11 16:27 | P.PN ---
Subjective Progress Note Date: 03/11/24 Hospital course: Patient is a very pleasant 68-year-old male with a past medical history of hyperlipidemia, GERD, osteoarthritis and spinal stenosis. He is currently admitted under orthospine surgery team status post extensive lumbar surgery by Dr. Mcqueen. We were consulted for medical management throughout hospitalization. Physical exam: Patient was seen and fully evaluated at bedside this morning. Patient reports having an extremely rough and awful night secondary to uncontrolled postopera tive back pain, postoperative nausea, and inability to tolerate pain medication Dilaudid secondary to worsening nausea. Vital signs reviewed and stable. General: Nontoxic, no distress and appears stated age. Derm: Skin warm and dry, normal coloration for ethnicity. Dressing to midline lumbar spine is intact with only minimal shadowing noted. Head: Atraumatic, normocephalic and symmetric. Eyes: EOM's intact, no lid lag, and anicteric sclera Mouth: no lip lesions, mucus membranes moist Cardiovascular: regular rate and rhythm with normal S1S2, no murmur, positive posterior tibial pulses bilaterally, and cap refill < 2 seconds. Lungs: Respirations even, regular, and unlabored on room air. Lungs CTA bilaterally, no rhonchi, no rales, no wheezing, and no accessory muscle usage. Abdominal: soft, nontender to palpation, no guarding, no appreciable organomegaly. Alicea catheter in place. Ext: Movement and sensation intact. No gross muscle atrophy, no edema, no contractures Neuro: Speech clear, face symmetrical and CN II-XII grossly intact with no noted focal neuro deficits Psych: Alert and oriented to person, place, time, and situation. Appropriate and pleasant affect. Assessment and Plan of Care: Uncontrolled postoperative pain -Discontinued Dilaudid SALES PROMOTION REPRESENTATIVE secondary to patient's inability to tolerate in order placed for morphine SALES PROMOTION REPRESENTATIVE with 5 mg loading dose and lockout at 10 mg every 4 hours. -Notified orthopedic surgery team of these changes and discussed in detail with orthopedic PA. Postoperative nausea -Patient received Zofran, reporting no improvement. Orders placed for Compazine 10 mg IVP every 6 hours. Status post extensive lumbar surgery -Management per primary admitting orthospine surgery team including DVT prophylaxis, pain management, weightbearing, and PT/OT. Hyperlipidemia -Continue daily medication management with rosuvastatin 5 mg nightly. GERD -GI prophylaxis with Protonix 40 mg daily. Data reviewed:: -Postoperative labs reviewed. CBC showing leukocytosis with WBC count of 12.02 and mild thrombocytopenia with platelet count of 134 otherwise normal findings. BMP unremarkable. Magnesium normal findings at 1.8. -Vital signs reviewed. Blood pressure 139/75, heart rate 85, respiratory rate 17, temp 98.2 F, and SpO2 of 93% on room air. Thank you for allowing us to participate in the care of this pleasant patient. Do not hesitate to contact us with questions. Someone can be reached from the [facility] hospitalist group all hours of the day at [phone] or via [employer]. Patient was seen independently by Nurse Practitioner. This document was prepared using [employer] dictation software. Please allow for er rors in structural shop helper while rare they do occur. I reviewed the documentation as provided by the BENNETT above, who is the original author of this note. I agree with the documented assessment and plan, with the following changes: none Objective - Vital Signs Vital signs: Vital Signs Temp 98.2 F 03/11/24 07:33 Pulse 85 03/11/24 07:33 Resp 17 03/11/24 07:33 BP 139/75 03/11/24 07:33 Pulse Ox 93 L 03/11/24 07:33 FiO2 Intake & Output 03/10/24 03/11/24 03/11/24 18:59 06:59 18:59 Intake Total 1302 Output Total 1125 Balance 177 Weight 93.3 kg Intake: IV 1302 Output: Urine 975 Estimated Blood Loss 150 Other: Voiding Method Indwelling Catheter # Voids 0 - Labs CBC & Chem 7: 03/12/24 06:35 03/12/24 06:35 Labs: Abnormal Lab Results - Last 24 Hours (Table) 03/11/24 03/11/24 Range/Units 02:53 02:53 WBC 12.02 H (4.50-10.00) X 10*3/uL RBC 4.20 L (4.40-5.60) X 10*6/uL MCV 100.2 H (80.0-97.0) FL MCH 34.0 H (27.0-32.0) pg Plt Count 134 L (140-440) X 10*3/uL Neutrophils # 9.15 H (1.80-7.70) X 10*3/uL Monocytes # 1.31 H (0.20-1.00) X 10*3/uL Calcium 8.6 L (8.7-10.3) mg/dL
[2024-03-11] MEDS: HYDROcodone/APAP 10-325MG 1 EACH TAB PO PRN (17:23)
[2024-03-11 17:42] VITALS: RESP 18
[2024-03-12 07:36] LABS: HCT 41.3 % (39.0-53.0); HGB 13.4 gm/dL (13.0-17.5); MCH 33.4 pg (25.0-35.0); MCHC 32.5 g/dL (31.0-37.0); MCV 102.6 fL (80.0-100.0); Mean Platelet Volume 7.7; Platelet Count 126 k/uL (150-450); RBC 4.02 m/uL (4.30-5.90); RDW 11.9 % (11.5-15.5); WBC 13.1 k/uL (3.8-10.6)
[2024-03-12] MEDS: VANCOMYCIN TROUGH DUE 1 EACH MISC MISCELLANE ONE (07:45)
[2024-03-12 08:01] VITALS: BP 132/75; PULSE 95; TEMP 98.7
[2024-03-12 08:02] LABS: African American GFR (CKD) >90 (>60 ml/min/1.73 sqM); Anion Gap 5 mmol/L; Blood Urea Nitrogen 8 mg/dL (9-20); Calcium 8.5 mg/dL (8.4-10.2); Carbon Dioxide 25 mmol/L (22-30); Chloride 105 mmol/L (98-107); Glucose 107 mg/dL (74-99); Magnesium 1.8 mg/dL (1.6-2.3); Non-African American GFR(CKD) >90 (>60 ml/min/1.73 sqM); Potassium 3.8 mmol/L (3.5-5.1); Sodium 135 mmol/L (137-145)
--- NOTE | 2024-03-12 08:19 | P.DS ---
Providers Date of admission: 03/11/24 11:52 Attending physician: Laron Mcqueen Consults: 03/10/24 10:34 Consult Physician Routine Consulting Provider: Kate Kinsey Consult Reason/Comments: Medical management Do you want consulting provider notified?: Yes [facility] Course: The patient presented on the day of admission as per their operative note. He is known to have significant issues with his low back and had adjacent level degeneration at L2-3 with severe stenosis and underwent decompression and fusion L2-3 with extension of fusion from his prior from L3-L5. Postoperatively patient feels like his legs are doing well. He has been making progress and improving his mobilization. He is tolerating his medications adequately. He initially had some nausea which is resolved. Physical Exam The incision site is clean dry and intact. There is no erythema no drainage. There is no purulence no evidence of infection. There is still some serosanguineous drainage at the center aspect where he had accumulation of some hematoma but it is slowing down significantly. There does not seem to be active drainage or bleeding Abdomen soft and nontender. Chest has good excursion with deep inspiration and expiration. The patient has active and passive range of motion intact at the upper and lower extremities. There is no acute change in neurologic status. He has sustained dorsiflexion plantarflexion he still has some residual weakness in the left lower extremity Hospital Course Postop day #3 status post open decompression fusion L2-3 with extension of fusion from L3-5 and removal of his prior hardware the patient has been making good progress postoperatively. They have completed the prophylactic antibiotics without any signs or symptoms of infection. The patient has been able to advance their diet, and is tolerating diet adequately. The pain was initially controlled with IV medications and is now controlled appropriately with oral medications. The patient has been able to increase their mobilization. The patient has progressed appropriately. If the patient continues to improve and tolerate well with oral medications and then I think they are in good stable condition for discharge today. I would like to see that hematoma stopped draining and it seems to be slowing down. He should try to ice over the area. They will be sent home with appropriate prescriptions. I answered their questions to the best of my ability in a language that they can understand and they are agreeable with the plan. They will follow up as directed. If he is not doing well enough is okay to stay another night for observation and close following. Patient Condition at Discharge: Good Plan - Discharge Summary Discharge Rx Participant: No New Discharge Prescriptions: New HYDROcodone/APAP 10-325MG [[place] 10-325] 1 tab PO Q4HR PRN #42 tab PRN Reason: Pain No Action Ibuprofen 600 mg PO Q6H PRN PRN Reason: Pain HYDROcodone/APAP 5-325MG [[place] 5-325] 1 tab PO Q8H PRN PRN Reason: Pain Rosuvastatin Calcium [Crestor] 5 mg PO HS Acetaminophen Tab [Tylenol Tab] 500 mg PO Q6H PRN PRN Reason: Pain Discharge Medication List Ibuprofen 600 mg PO Q6H PRN 05/09/21 [History] Acetaminophen Tab [Tylenol Tab] 500 mg PO Q6H PRN 03/03/24 [History] HYDROcodone/APAP 5-325MG [[place] 5-325] 1 tab PO Q8H PRN 03/03/24 [History] Rosuvastatin Calcium [Crestor] 5 mg PO HS 03/03/24 [History] HYDROcodone/APAP 10-325MG [[place] 10-325] 1 tab PO Q4HR PRN #42 tab 03/12/24 [Rx] Follow up Appointment(s)/Referral(s): Maxwell Marquez, TIMUR [PHYSICIAN CHILDREN'S LIBRARIAN] - 2 Weeks (Patient may follow-up with Maxwell Marquez PA-C or Dr. Azeem Mcqueen at [facility] in 2-3 weeks following discharge. ) Activity/Diet/Wound Care/Special Instructions: 1. Patient may shower with Optifoam dressing intact. 2. Patient may remove Optifoam dressing in 3 days and shower without a dressing at that time. 3. Patient should refrain from driving until at least after their first follow- up appointment in the office. 4. Patient should avoid excessive bending, twisting, lifting; avoid overhead lifting; no lifting greater than 10 pounds 5. Take medications as prescribed 6. Patient should avoid anti-inflammatory medications over the next 6 weeks postoperatively 7. Patient may utilize walker to aid in ambulation as needed 8. Do not soak in tub Discharge Disposition: HOME SELF-CARE
--- NOTE | 2024-03-12 13:23 | P.PN ---
Subjective Progress Note Date: 03/12/24 Hospital course: Patient is a very pleasant 68-year-old male with a past medical history of hyperlipidemia, GERD, osteoarthritis and spinal stenosis. He is currently admitted under orthospine surgery team status post extensive lumbar surgery by Dr. Mcqueen. We were consulted for medical management throughout hospitalization. Physical exam: Patient was seen and fully evaluated at bedside this morning. Patient sitting up in chair at bedside and reports having a much better night. He currently reports controlled postoperative pain and denies having any other questions, needs, complaints, or concerns at this time. Patient reports he feels ready to go home. Vital signs reviewed and stable. General: Nontoxic, no distress and appears stated age. Derm: Skin warm and dry, normal coloration for ethnicity. Dressing to midline lumbar spine is intact with only minimal shadowing noted. Head: Atraumatic, normocephalic and symmetric. Eyes: EOM's intact, no lid lag, and anicteric sclera Mouth: no lip lesions, mucus membranes moist Cardiovascular: regular rate and rhythm with normal S1S2, no murmur, positive posterior tibial pulses bilaterally, and cap refill < 2 seconds. Lungs: Respirations even, regular, and unlabored on room air. Lungs CTA bilaterally, no rhonchi, no rales, no wheezing, and no accessory muscle usage. Abdominal: soft, nontender to palpation, no guarding, no appreciable organomegaly. Alicea catheter in place. Ext: Movement and sensation intact. No gross muscle atrophy, no edema, no contractures Neuro: Speech clear, face symmetrical and CN II-XII grossly intact with no noted focal neuro deficits Psych: Alert and oriented to person, place, time, and situation. Appropriate and pleasant affect. Assessment and Plan of Care: Uncontrolled postoperative pain -Discontinued Dilaudid FAGOTER secondary to patient's inability to tolerate in order placed for morphine FAGOTER with 5 mg loading dose and lockout at 10 mg every 4 hours. -Notified orthopedic surgery team of these changes and discussed in detail with orthopedic PA. Postoperative nausea -Patient received Zofran, reporting no improvement. Orders placed for Compazine 10 mg IVP every 6 hours. Status post extensive lumbar surgery -Management per primary admitting orthospine surgery team including DVT prophylaxis, pain management, weightbearing, and PT/OT. Hyperlipidemia -Continue daily medication management with rosuvastatin 5 mg nightly. GERD -GI prophylaxis with Protonix 40 mg daily. Data reviewed:: -Morning labs reviewed. CBC showing mild leukocytosis with WBC count of 13.1, macrocytosis with MCV of 102.6, and thrombocytopenia with platelet count of 126. BMP unremarkable. Blood glucose 107. Magnesium 1.8. -Vital signs reviewed. Blood pressure 132/75, heart rate 95, respiratory rate 18, temp 98.7 F, and SpO2 of 94% on room air. Patient is medically optimized for discharge once cleared by primary admitting orthopedic surgery team. Thank you for allowing us to participate in the care of this pleasant patient. Do not hesitate to contact us with questions. Someone can be reached from the [facility] hospitalist group all hours of the day at [phone] or via [employer]. Patient was seen independently by Nurse Practitioner. This document was prepared using [employer] dictation software. Please allow for errors in compensation adjuster while rare they do occur. I reviewed the documentation as provided by the BENNETT above, who is the original author of this note. I agree with the documented assessment and plan, with the following changes: none Objective - Vital Signs Vital signs: Vital Signs Temp 98.7 F 03/12/24 07:14 Pulse 95 03/12/24 07:14 Resp 18 03/12/24 07:14 BP 132/75 03/12/24 07:14 Pulse Ox 94 L 03/12/24 07:14 FiO2 Intake & Output 03/11/24 03/12/24 03/12/24 18:59 06:59 18:59 Intake Total 550 Output Total 5000 Balance -4450 Intake: Oral 550 Output: Urine 5000 Other: Voiding Method Urinal Urinal # Voids 3 2 - Labs CBC & Chem 7: 03/12/24 06:35 03/12/24 06:35 Labs: Abnormal Lab Results - Last 24 Hours (Table) 03/11/24 03/12/24 03/12/24 Range/Units 02:53 06:35 06:35 WBC 13.1 H (3.8-10.6) k/uL RBC 4.02 L (4.30-5.90) m/uL MCV 102.6 H (80.0-100.0) fL Plt Count 126 L (150-450) k/uL Sodium 135 L (137-145) mmol/L BUN 8 L (9-20) mg/dL Glucose 107 H (74-99) mg/dL Calcium 8.6 L (8.7-10.3) mg/dL
== END 2024-03-12 12:35 | disposition home or self-care (01) | DRG 451 ==
LOC: OR 05:36 → 4SSUR 13:49 → OR 03-11 11:52 → 4SSUR 03-11 11:52
PROVIDERS: ADMIT Orthopaedic Surgery Orthopaedic Surgery of the Spine; ATTEND Orthopaedic Surgery Orthopaedic Surgery of the Spine
PROC: 0SP004Z Removal of Internal Fixation Device from Lumbar Vertebral Joint, Open Approach (ICD-10-PCS; 2024-03-10)
PROC: 01NB0ZZ Release Lumbar Nerve, Open Approach (ICD-10-PCS; 2024-03-10)
PROC: 0SB20ZZ Excision of Lumbar Vertebral Disc, Open Approach (ICD-10-PCS; 2024-03-10)
PROC: 00NY0ZZ Release Lumbar Spinal Cord, Open Approach (ICD-10-PCS; 2024-03-10)
PROC: 0JH Subcutaneous Tissue and Fascia, Insertion (ICD-10-PCS; 2024-03-10)
PROC: 4A11X4G Monitoring of Peripheral Nervous Electrical Activity, Intraoperative, External Approach (ICD-10-PCS; 2024-03-10)
PROC: 07DS3ZZ Extraction of Vertebral Bone Marrow, Percutaneous Approach (ICD-10-PCS; 2024-03-10)
PROC: 8E0WXBF Computer Assisted Procedure of Trunk Region, With Fluoroscopy (ICD-10-PCS; 2024-03-10)
PROC: 0SG0071 Fusion of Lumbar Vertebral Joint with Autologous Tissue Substitute, Posterior Approach, Posterior Column, Open Approach (ICD-10-PCS; principal; 2024-03-10 07:30)
DX: T84.216A Breakdown (mechanical) of internal fixation device of vertebrae, initial encounter (principal); M51.16 Intervertebral disc disorders with radiculopathy, lumbar region; M48.061 Spinal stenosis, lumbar region without neurogenic claudication; M53.2X6 Spinal instabilities, lumbar region; I10 Essential (primary) hypertension; R11.0 Nausea; E78.5 Hyperlipidemia, unspecified; K21.9 Gastro-esophageal reflux disease without esophagitis; Y79.2 Prosthetic and other implants, materials and accessory orthopedic devices associated with adverse incidents; Z88.2 Allergy status to sulfonamides; Z88.1 Allergy status to other antibiotic agents
CPT/HCPCS: 72100; 80048; 80202; 83735; 85025; 85027

== ENCOUNTER → 2024-07-15 | Outpatient (CLI) | payer MEDICARE, BC ==
--- NOTE | 2024-07-15 16:14 | CTL ---
EXAMINATION TYPE: CT Low Dose Lung DATE OF EXAM ORDERED: 07/15/2024 COMPARISON: 06/23/2023 CLINICAL INDICATION: Male, 68 years old with history of Z12.2 LUNG CANCER SCREENING; H, Personal hi story of tobacco use, Lung cancer screening, History of Smoking/tobacco use. TECHNIQUE: Low dose computed tomography scan was performed through the chest at 1 mm thick sections a nd reconstructed images in multiple planes at 1 mm and [address] DLP: 130.[address] CTDI: 3.1 mGy Automated exposure control for dose reduction was used. CT DIAGNOSTIC QUALITY: Satisfactory Findings: There is a stable 6 mm juxta pleural nodule in the left major fissure. There are no new or suspicious lung masses or nodules. There are mild emphysematous changes. There is no lung consolidation or abnormal interstitial density. There is no pleural effusion or pneumothorax. The great vessels and heart are normal in size. There is no mediastinal, hilar or axillary adenopathy. Limited scanning through the upper abdomen reveals stable approximately 4 small hepatic cysts. There are no focal osseous lesions. IMPRESSION: 1. Lung RADS category 2 benign. Continue routine screening at yearly intervals. 2. No acute cardiopulmonary disease. 3. Mild emphysematous changes. [facility], , 07/15/2024 4:11 PM
== END | disposition home or self-care (01) ==
LOC: RADCTMAIN 15:21
PROVIDERS: ATTEND Internal Medicine
DX: Z12.2 Encounter for screening for malignant neoplasm of respiratory organs (principal); F17.210 Nicotine dependence, cigarettes, uncomplicated; J43.9 Emphysema, unspecified
CPT/HCPCS: 71271

== ENCOUNTER → 2024-11-30 | Outpatient (CLI) | payer MEDICARE, BC ==
--- NOTE | 2024-11-30 11:39 | US ---
EXAMINATION TYPE: US carotid duplex BILAT DATE OF EXAM: 11/30/2024 COMPARISON: NONE CLINICAL INDICATION: Male, 69 years old with history of I65.23 CAROTID STENOSIS; Calcium seen in righ t CCA bulb on XR Additional History: .... TECHNIQUE: Grayscale, color Doppler and spectral Doppler evaluation of the bilateral carotid systems and vertebral arteries. Indirect Doppler criteria was utilized. FINDINGS: EXAM MEASUREMENTS: RIGHT: Peak Systolic Velocity (PSV) cm/sec ----- Right CCA: 45 ----- Right ICA: 61 ----- Right ECA: 88 ICA/CCA ratio: 1.4 RIGHT: End Diastole cm/sec ----- Right CCA: 8 ----- Right ICA: 20 ----- Right ECA: 15 LEFT: Peak Systolic Velocity (PSV) cm/sec ----- Left CCA: 48 ----- Left ICA: 82 ----- Left ECA: 64 ICA/CCA ratio: 1.7 LEFT: End Diastole cm/sec ----- Left CCA: 12 ----- Left ICA: 24 ----- Left ECA: 10 VERTEBRALS (direction of flow): Right Vertebral: Antegrade Left Vertebral: Antegrade Rhythm: Normal [employer] NOTES: Calcified plaque seen bilateral CCA bulbs, and no intimal thickening or elevated v elocities seen. Color Doppler imaging shows patency with blood flow throughout the carotid artery. Spectral waveforms are within normal limits. IMPRESSION: Right: No hemodynamically significant stenosis. Left: No hemodynamically significant stenosis. Criteria for Assigning % of Stenosis / Diameter reduction (Estimation based on the indirect measurements of the internal carotid artery velocities (ICA PSV). 1. Normal (no stenosis)=ICA PSV < 180 cm/s: ratio < 2.0: ICA EDV<40 cm/s. 2. Less than 50% stenosis=ICA PSV < 180 cm/s: ratio < 2.0: ICA EDV<40 cm/s. 3. 50 to 69% stenosis=ICA PSV of 180 to 230 cm/s: ration 2.0 ? 4.0: ICA EDV 40-100 cm/s. PSV 125-180 cm/sec and ICA/CCA PSV Ratio ? 2.0 is also consistent with 50-69% stenosis 4. Greater than 70% stenosis to near occlusion= ICA PSV > 230 cm/s: ratio > 4.0: ICA EDV > 100 cm/s. 5. Near occlusion= ICA PSV velocities may be low or undetectable: variable ratio and ICA EDV. 6. Total occlusion=unable to detect flow. [facility], , 11/30/2024 11:36 AM
== END | disposition home or self-care (01) ==
LOC: RADUSWWP 11:01
PROVIDERS: ATTEND Internal Medicine
DX: I65.23 Occlusion and stenosis of bilateral carotid arteries (principal)
CPT/HCPCS: 93880